=== PATIENT | female | born 1965 | race African-American/Black ===

== ENCOUNTER 2024-09-03 20:40 | Inpatient (IN) ==
--- NOTE | 2024-09-03 21:02 | Emergency Department Note ---
HPI - Abdominal Pain General Chief Complaint: Nausea/Vomiting/Diarrhea Stated Complaint: NAUSEA,VOMITING,CHEST PAIN GOING DOWN TO LEFT ARM Time Seen by Provider: 09/03/24 20:48 Source: patient Mode of arrival: walk-in Limitations: no limitations History of Present Illness HPI narrative: 59-year-old female presents to ER with complaint of left lower quadrant abdominal pain times several days, and chest pain that radiates down her left arm x 2 weeks ago and reoccurred today but is gone now. MD elicited complaint: abdominal pain and other (Chest pain) Pertinent past history: constipation and past UTI Onset (ago): day(s) (3) Pain Consistency: intermittent Location: chest and LLQ Severity: moderate Quality: cramping, aching and sharp Radiation: LUQ Migration to: no migration Exacerbating factors: eating and movement Relieving factors: nothing Context: history of similar episodes Associated symptoms: nausea, vomiting, constipation and other (Chest pain) Related Data Patient : No Patient lactating: No Allergies Allergy/AdvReac Type Severity Reaction Status Date / Time No Known Drug Allergies Allergy Verified 09/03/24 21:03 Review of Systems Status of ROS 10 or more systems reviewed and unremark able except as noted in history and below Constitutional Denies: fever, chills, change in weight, fatigue, malaise, night sweats, change in sleep pattern or other Eyes Denies: change in vision, blurry vision, blind spots, light sensitivity, eye discomfort, eye discharge, dry eyes, increased production of tears, floaters, seeing flashes or decreased night vision Ears, nose, mouth, and throat Denies: throat pain, neck pain, throat swelling, difficulty swallowing, hoarseness, mouth pain, swelling of lips/tongue, dry mouth, bad breath, ear pain, ear discharge, change in hearing, tinnitus, vertigo, nasal discharge, nasal congestion, nose bleeds or post nasal drip Cardiovascular Reports: chest pain; Denies: palpitations, edema, swelling of feet/ankles, lightheadedness, shortness of breath with exertion, shortness of breath when lying down, leg pain with exertion or bluish discoloration of hands/feet Respiratory Denies: shortness of breath, cough, wheezing, stridor, pain on inspiration, change in phlegm color, coughing up blood or chest congestion Gastrointestinal Reports: abdominal pain, nausea, vomiting and constipation; Denies: coffee grounds in vomit, heartburn, diarrhea, bloating, belching, excessive passing of gas, difficulty swallowing, feeling full early, change in bowel habits, painful bowel movements, rectal pain, rectal swelling, rectal itching, change in stool character, blood in stool, mucus in stool, white/light colored stool or fatty stool Genitourinary Denies: painful urination, urinary frequency, urinary urgency, urinary incontinence, blood in urine, difficulty voiding, decreased urine ouput, pelvic pain, painful menstruation, vaginal bleeding, vaginal discharge, irregular period, change in menstrual flow, absence of menstruation, genital lesion, genital itching, vaginal dryness, vaginal odor, pain during intercourse, difficulty conceiving or change in libido Musculoskeletal Reports: extremity pain; Denies: back pain, neck pain, extremity swelling, joint pain, limited range of motion, joint swelling, muscle cramps, muscle weakness or loss of height Integumentary/Breast Denies: rash, itching, redness, skin pain, skin tenderness, skin swelling, sores, new lesion, changing lesion, non-healing l esion, changes in skin color, jaundice, stretch alfonso, acne, nail changes, change in hair, breast pain, breast swelling, nipple discharge, breast mass, breast skin changes or change in breast shape Neurological Denies: headache, numbness in extremities, weakness in extremities, lack of coordination, dizziness, vertigo, confusion, behavioral changes, slurred speech, difficulty communicating thoughts, seizure-like activity or involuntary movements Psychiatric Reports: anxiety; Denies: mood swings, panic attacks, change in sleep pattern, hopelessness, loss of interest, irritability, paranoia, memory loss, difficulty concentrating, visual hallucinations, auditory hallucinations, tactile hallucinations, suicidal ideation or homicidal ideation Endocrine Denies: excessive urination, excessive thirst, fatigue, cold intolerance, excessive sweating, flushing, heat intolerance, deepening of the voice, change in body appearance or change in libido Hematologic/Lymphatic Denies: easy bruising, easy bleeding or enlarged lymph nodes Allergic/Immunologic Denies: hives, throat swelling, tongue swelling, facial swelling, wheezing, itchy eyes, seasonal allergies or food intolerance [facility] Medical History (Updated 09/03/24 @ 21:06 by Kassidy Crain RN) Diabetes Hypertension Surgical History (Updated 09/03/24 @ 21:06 by Kassidy Crain RN) History of partial hysterectomy Social History Smoking status: never smoker Feel stressed/tense/nervous/anxious/difficulty sleeping: to some extent Life stressors: other (none) Life stressor details: Current medical condition Due to disability, difficulty making decisions: No Exam Constitutional: normal general appearance, distress noted (moderate), average body habitus, no limitations and alert Vital Signs - 24 hr 09/03/24 21:00 09/03/24 21:01 09/03/24 21:30 Temperature 98.6 F Pulse Rate 120 H 135 H 125 H Respiratory Rate 20 20 20 Blood Pressure 123/56 136/69 108/54 Pulse Oximetry 100 97 96 Oxygen Delivery Va thod Room Air Room Air Room Air 09/03/24 22:00 09/03/24 22:15 09/03/24 22:45 Temperature Pulse Rate 120 H 121 H 120 H Respiratory Rate 20 20 18 Blood Pressure 100/56 90/53 94/61 Pulse Oximetry 95 95 95 Oxygen Delivery Va thod Room Air Room Air Room Air 09/03/24 23:00 09/03/24 23:15 09/03/24 23:45 Temperature Pulse Rate 116 H 113 H 115 H Respiratory Rate 18 14 19 Blood Pressure 96/56 93/59 99/58 Pulse Oximetry 95 96 96 Oxygen Delivery Va thod Room Air Room Air Room Air 09/04/24 00:20 Temperature Pulse Rate 117 H Respiratory Rate 16 Blood Pressure 95/56 Pulse Oximetry 96 Oxygen Delivery Va thod Room Air HENMT: normocephalic, head/scalp atraumatic, hearing grossly normal bilaterally, external ears normal, EACs normal, nasal mucous membranes normal, external nose normal, oral mucous membranes normal, oropharynx normal, dentition normal and gingiva normal Eyes: PERRL, EOMs intact bilaterally, conjunctivae normal, no scleral icterus, no papilledema, normal visual thibodeaux by confrontation, alignment normal, periorbital findings normal and no nystagmus Neck/C-Spine: visual inspection normal, trachea midline, cervical spine nontender, cervical full ROM noted, supple, no meningeal signs and thyroid normal Lymph: no lymphadenopathy noted and no lymphedema noted Chest: inspection of chest normal, inspection of breast(s) abnormal (deferred) and palpation of breast(s) abnormal (deferred) Respiratory: breath sounds equal bilaterally, normal respiratory effort, clear to auscultation bilaterally, no wheezes, no rales, no retractions and no use of accessory muscles Cardiovascular: heart rate abnormal (113) (tachycardic), regular rhythm noted, no gallop, no rub, no murmur, no JVD, no clicks, peripheral pulses 2+ throughout and no additional abnormal heart sounds Gastrointestinal: abdomen normal to inspection, abdomen soft to palpation, tender to palpation (moderate) and (LLQ), nondistended, normoactive bowel sounds, no hepatosplenomegaly, no masses, no pulsatile mass, no ascites and rectal exam abnormal (deferred) Genitourinary: no CVA tenderness, bladder normal to palpation, vaginal abnorma lity noted (deferred) and cervical abnormality noted (deferred) Back/Pelvis: spine normal to inspection, no thoracic spine tenderness, no lumbar spine tenderness, thoracic spine ROM normal, lumbar spine ROM normal and no paraspinal muscle tenderness noted Extremities: normal to inspection, normal to palpation, no tenderness, full ROM, no joint enlargement and no deformity Patient reports pain in her lower extremities Neurology: in store banker II-XII intact, no movement abnormality noted, no focal motor deficit noted, no sensory deficits noted, deep tendon reflexes 2+ bilaterally, gait normal, speech normal, coordination normal, no pronator drift noted, no fasciculations noted and GCS normal Psychiatry: Mental Status Exam documented within this Exam's Psych section mental status grossly normal, oriented x3, thought process normal, cooperative, affect normal, psychomotor activity normal and memory normal Feel stressed/tense/nervous/anxious/difficulty sleeping: to some extent Life stressors: other (none) Life stressor details: Current medical condition Due to disability, difficulty making decisions: No Skin: skin color normal, no rash, no lesions, no ecchymosis noted, no wounds, no lacerations, skin turgor normal, no jaundice, no petechiae, no mottling, nails normal and no alopecia Course Course Hospital Course: 59-year-old female patient presented to ER with complaint of left lower quadrant abdominal pain and chest pain has been evaluated by physical exam, CBC, CMP, EKG, CT of the abdomen pelvis without contrast, plain film chest x-ray, Troponin, and swabs for influenza with results as noted in charting. Patient's labs reveal patient to be hyperglycemic, hypokalemic, hypoalbuminemic, adjusted sodium is within normal limits, patient is negative for influenza, and CT reveals patient to have a 4 mm nonobstructing renal calculi. Patient reports that she continues to be weak and dizzy and that her abdominal pain continues despite pain medication. Patient's glucose level is responding today; however, it is slow in coming down. Patient's labs also reveal her to be mildly dehydrated which will be replaced with normal saline. Patient will be admitted to observation on the [facility] floor for ongoing evaluation of cardiac enzymes and cardiac rule out, hyperglycemia, dehydration, pain control, and generalized weakness. Vital Signs Vital signs: Vital Signs Pulse Rate 120 H 09/03/24 21:00 Respiratory Rate 20 09/03/24 21:00 Blood Pressure 123/56 09/03/24 21:00 Pulse Oximetry 100 09/03/24 21:00 Oxygen Delivery Method Room Air 09/03/24 21:00 Temperature 98.6 F 09/03/24 21:01 Pulse Rate 117 H 09/04/24 00:20 Respiratory Rate 16 09/04/24 00:20 Blood Pressure 95/56 09/04/24 00:20 Pulse Oximetry 96 09/04/24 00:20 Oxygen Delivery Method Room Air 09/04/24 00:20 MDM - Abdominal Pain MDM Narrative Medical decision making narrative: Medical Decision Making this patient above physical exam, CBC, CMP, troponin, urinalysis, EKG, plain film chest x-ray, CT of the abdomen/pelvis without contrast, and swab for influenza. Differential Diagnosis Differential diagnosis: Likely abdominal pain, calculus of kidney, constipation, diverticulitis, gastroenteritis and small bowel obstruction Lab Data Attestation: I reviewed the patient's lab results. Labs: Lab Results 09/03/24 Range/Units 21:05 WBC 7.1 (4.3-9.3) K/uL RBC 5.1 (4.00-5.50) M/uL Hgb 12.8 (12.5-15.8) gm/dL Hct 38.3 (35.9-46.7) % MCV 75.2 L (81.0-93.7) fl MCH 25.2 L (27.6-32.2) pg MCHC 33.5 (33.1-35.3) g/dl RDW 16.8 H (11.4-14.2) % Plt Count 174 (152-353) K/uL MPV 10.3 (6.9-10.8) fl Gran % 90.4 H (47.8-71.3) % Lymph % (Auto) 7.4 L (20.0-43.0) % [place] % (Auto) 1.6 L (3.6-9.8) % Eos % (Auto) 0.1 L (0.4-2.8) % Baso % (Auto) 0.5 (0.1-0.85) Lymph # (Auto) 0.5 L (1.1-3.1) [place] # (Auto) 0.1 L (1.1-3.1) Eos # (Auto) 0.0 (0.0-0.2) Baso # (Auto) 0.0 (0.0-0.1) Absolute Gran (auto) 6.4 H (2.3-6.0) Sodium 129 L (136-145) mmol/L Potassium 3.5 L (3.6-5.2) mmol/L Chloride 94.0 L (98-107) mmol/L Carbon Dioxide 25 (21-32) mmol/L Anion Gap 10.0 (4-14) mEq/L BUN 15 (7-18) mg/dL Creatinine 1.7 H (0.6-1.3) mg/dL Estimated GFR 34.6 (>59.9) Glucose 582 H* (70-110) mg/dL Calcium 9.0 (8.5-10.1) mg/dL Total Bilirubin 1.92 H (0.0-1.0) mg/dL AST 62 H (15-37) U/L ALT 45 (30-65) U/L Alkaline Phosphatase 310 H (50-136) U/L Troponin I High Sens 7.30 (4.0-60.4) ng/L Total Protein 7.5 (6.4-8.2) g/dL Albumin 2.8 L (3.4-5.0) g/dL Influenza Type A Ag Negative (Negative) Influenza Type B Ag Negative (Negative) Imaging Data Imaging ordered: Chest x-ray and CT scan - abdomen Attestation: I have reviewed the pertinent imaging results. My impression: No acute cardiopulmonary process Radiologist's impression: PROCEDURE: CT Abdomen and Pelvis without IV Contrast. HISTORY: LLQ abd painLLQ abd pain; LLQ abd pain. TECHNIQUE: Axial images were performed through the abdomen and pelvis without the administration of IV contrast with multiplanar reformations . Oral contrast was notadministered . Dose reduction techniques including Automated Exposure Control (AEC) and adjustment of mA and kV were utilized .. COMPARISON: None. TECHNICAL QUALITY: Satisfactory. FINDINGS: Clear lung bases. Mild diffuse hepatic steatosis. Spleen, adrenals, pancreas show no abnormality. 4 mm mid left ureter stone with mild proximal hydroureteronephrosis. Normal biliary tract. No ascites or pneumoperitoneum. Normal aorta. No lymphadenopathy. No bowel obstruction or inflammation. Normal appendix. No pelvic masses or free fluid with unremarkable reproductive organs and urinary bladder. No acute bony abnormality. IMPRESSION: Mid left ureterolithiasis with mild hydroureteronephrosis. Mild diffuse hepatic steatosis. THIS IS AN ELECTRONICALLY VERIFIED FINAL REPORT 09/04/2024 12:14 AM - Electronically signed by J Carlos Esparza MD ECG Data Attestation: I have reviewed the pertinent ECG results. Interpretation: Tachycardia rate 130 Left anterior vascular block Left ventricular hypertrophy Nonspecific T abnormalities RR 464 NJ 136 P axis 71 QRS -54 T 97 Discharge Plan Discharge Patient Disposition: Admitted As Observation Condition: Stable Chief Complaint: Nausea/Vomiting/Diarrhea Clinical Impression: Kidney stone, Hypokalemia, Uncontrolled diabetes mellitus with hyperglycemia, Hypoalbuminemia, Chest pain Print Language: Croatian Referrals: Jayjay Jhaveri DPM [Referring] - Time of Disposition: 00:30
[2024-09-03] MEDS ORDERED: ONDANSETRON HCL/PF 4 MG/2 ML VIAL ONE (21:08)
[2024-09-03] MEDS: ONDANSETRON HCL/PF 4 MG/2 ML VIAL IVP ONE (21:09)
[2024-09-03 21:16] LABS: Basophils%(Percent) Auto 0.5 (0.1-0.85); Eosinophils%(Percent) Auto 0.1 % (0.4-2.8); Granulocytes % - Auto 90.4 % (47.8-71.3); Granulocytes#(Absolute)- Auto 6.4 (2.3-6.0); Hematocrit 38.3 % (35.9-46.7); Mean Corpuscular Volume 75.2 fl (81.0-93.7); Monocytes #(Absolute)- Auto 0.1 (1.1-3.1); Monocytes %(Percent)- Auto 1.6 % (3.6-9.8); Platelet Count 174 K/uL (152-353); White Blood Count 7.1 K/uL (4.3-9.3)
[2024-09-03 21:38] LABS: Potassium 3.5 mmol/L (3.6-5.2)
[2024-09-03] MEDS ORDERED: 0.9 % SODIUM CHLORIDE 1000 ML 1,000 ML IV ONE (22:24)
[2024-09-03] MEDS: 0.9 % SODIUM CHLORIDE 1000 ML 1,000 ML IV STA (22:27)
[2024-09-04] MEDS ORDERED: KETOROLAC 30 MG/ML INJ VIAL ONE (00:21)
[2024-09-04] MEDS ORDERED: ONDANSETRON HCL/PF 4 MG/2 ML VIAL ONE (00:22)
[2024-09-04] MEDS: ONDANSETRON HCL/PF 4 MG/2 ML VIAL IVP ONE (00:28)
[2024-09-04] MEDS: KETOROLAC 30 MG/ML INJ VIAL IVP ONE (00:29)
[2024-09-04] MEDS ORDERED: TAMSULOSIN HCL 0.4 MG CAPSULE PO ONE (00:30)
[2024-09-04] MEDS: TAMSULOSIN HCL 0.4 MG CAPSULE PO ONE (00:31)
[2024-09-04] MEDS: POTASSIUM CL 40 MEQ/30 ML 40 MEQ/30 ML LIQUID PO STA (00:50)
[2024-09-04] MEDS ORDERED: MAGNESIUM, ALUMINUM HYDROXIDE 30 ML ORAL.SUSP PO PRN (01:05)
[2024-09-04] MEDS ORDERED: bisacodyL 10 MG SUPP.RECT PR PRN (01:05)
[2024-09-04] MEDS: 0.9 % SODIUM CHLORIDE 1000 ML 1,000 ML IV SCH (03:23)
[2024-09-04] MEDS: KETOROLAC 30 MG/ML INJ VIAL IVP PRN (03:23)
[2024-09-04] MEDS: ONDANSETRON HCL/PF 4 MG/2 ML VIAL INJ PRN (03:24)
[2024-09-04 09:30] LABS: Basophils #(Absolute) Auto 0.1 (0.0-0.1); Basophils%(Percent) Auto 0.4 (0.1-0.85); Eosinophils%(Percent) Auto 0.1 % (0.4-2.8); Monocytes #(Absolute)- Auto 1.6 (1.1-3.1)
[2024-09-04 09:31] LABS: Granulocytes % - Auto 82.7 % (47.8-71.3); Granulocytes#(Absolute)- Auto 14.7 (2.3-6.0); Hematocrit 32.6 % (35.9-46.7); Mean Corpuscular Volume 75.3 fl (81.0-93.7); Monocytes %(Percent)- Auto 9.1 % (3.6-9.8); Platelet Count 158 K/uL (152-353); White Blood Count 17.8 K/uL (4.3-9.3)
[2024-09-04 09:43] LABS: Urine Appearance CLOUDY (CLEAR); Urine Blood 4+ (NEG - TRACE); Urine Color YELLOW (STRAW/YELL.); Urine Urobilinogen Normal (NORMAL)
[2024-09-04] MEDS: MORPHINE SULFATE 4 MG/ML CARTRIDGE IV PRN (09:49)
[2024-09-04 09:50] LABS: Urine Amorphous Sediment Negative (Negative); Urine Yeast Negative (Negative)
[2024-09-04] MEDS: SODIUM CHLORIDE 0.9% IV ONE (10:09)
[2024-09-04] MEDS: MAGNESIUM SULFATE 1 GM/2 ML 2 GM in 0.9 % SODIUM CHLORIDE 100ML 100 ML IV ONE (10:09)
[2024-09-04] MEDS: POTASSIUM PHOS M BASIC D BASIC IV ONE (10:09)
[2024-09-04 11:39] LABS: PCO2 ABG 42 mmHg (35-45); PO2 ABG 66 mmHg (60-100)
[2024-09-04 11:40] LABS: Oxygen Saturation ABG 93 % (92-100)
[2024-09-04] MEDS: 0.9 % SODIUM CHLORIDE 500 ML IV ONE (11:59)
[2024-09-04] MEDS: CEFTRIAXONE SODIUM 1 GM in 0.9 % SODIUM CHLORIDE MB+ 50 ML IV SCH (11:59)
[2024-09-04] MEDS: INSULIN GLARGINE-YFGN 100 UNIT/ML INSULN.PEN SUBQ SCH ×2 (12:07→20:54)
[2024-09-04] MEDS ORDERED: FUROSEMIDE 20 MG TABLET PO PRN (13:06)
[2024-09-04] MEDS: ACETAMINOPHEN 500 MG TABLET PO PRN (16:25)
--- NOTE | 2024-09-04 16:45 | History & Physical Report ---
H&P: HPI History of Present Illness Chief complaint: CHEST PAIN,HYPERGLYCEMIA,KIDNEY STONE,PAIN CONTROL Narrative: 59-year-old female presents to ER with complaint of left lower quadrant abdominal pain times several days, and chest pain that radiates down her left arm x 2 weeks ago and reoccurred today but is gone now. Admitted to med/surg for further observation and treatment. Day one of hospital stay, patient states she still feels dizzy and weak. She reports she has had chest pain for 2 days, her fiber optic technician is Dr. Peterson. Blood sugar level was elevated this morning at 430. Provider will increase fluids from 100 to 125/hr and add medication for bowel movement. Request for Physical Therapy was put in for evaluation for inner ear. Review of Systems Status of ROS 10 or more systems reviewed and unremark able except as noted in history and below Constitutional Denies: fever, chills, change in weight, fatigue, malaise, night sweats, change in sleep pattern or other Eyes Denies: change in vision, blurry vision, blind spots, light sensitivity, eye discomfort, eye discharge, dry eyes, increased production of tears, floaters, seeing flashes or decreased night vision Ears, nose, mouth, and throat Denies: throat pain, neck pain, throat swelling, difficulty swallowing, hoarseness, mouth pain, swelling of lips/tongue, dry mouth, bad breath, ear pain, ear discharge, change in hearing, tinnitus, vertigo, nasal discharge, nasal congestion, nose bleeds or post nasal drip Cardiovascular Reports: chest pain; Denies: palpitations, edema, swelling of feet/ankles, lightheadedness, shortness of breath with exertion, shortness of breath when lying down, leg pain with exertion or bluish discoloration of hands/feet Respiratory Denies: shortness of breath, cough, wheezing, stridor, pain on inspiration, change in phlegm color, coughing up blood or chest congestion Gastrointestinal Reports: abdominal pain, nausea, vomiting and constipation; Denies: coffee grounds in vomit, heartburn, diarrhea, bloating, belching, excessive passing of gas, difficulty swallowing, feeling full early, change in bowel habits, painful bowel movements, rectal pain, rectal swelling, rectal itching, change in stool character, blood in stool, mucus in stool, white/light colored stool or fatty stool Genitourinary Denies: painful urination, urinary frequency, urinary urgency, urinary incontinence, blood in urine, difficulty voiding, decreased urine ouput, pelvic pain, painful menstruation, vaginal bleeding, vaginal discharge, irregular period, change in menstrual flow, absence of menstruation, genital lesion, genital itching, vaginal dryness, vaginal odor, pain during intercourse, difficulty conceiving or change in libido Musculoskeletal Reports: extremity pain; Denies: back pain, neck pain, extremity swelling, joint pain, limited range of motion, joint swelling, muscle cramps, muscle weakness or loss of height Integumentary/Breast Denies: rash, itching, redness, skin pain, skin tenderness, skin swelling, sores, new lesion, changing lesion, non-healing lesion, changes in skin color, jaundice, stretch alfonso, acne, nail changes, change in hair, breast pain, breast swelling, nipple discharge, breast mass, breast skin changes or change in breast shape Neurological Denies: headache, numbness in extremities, weakness in extremities, lack of coordination, dizziness, vertigo, confusion, behavioral changes, slurred speech, difficulty communicating thoughts, seizure-like activity or involuntary movements Psychiatric Reports: anxiety; Denies: mood swings, panic attacks, change in sleep pattern, hopelessness, loss of interest, irritability, paranoia, memory loss, difficulty concentrating, visual hallucinations, auditory hallucinations, tactile hallucinations, suicidal ideation or homicidal ideation Endocrine Denies: excessive urination, excessive thirst, fatigue, cold intolerance, excessive sweating, flushing, heat intolerance, deepening of the voice, change in body appearance or change in libido Hematologic/Lymphatic Denies: easy bruising, easy bleeding or enlarged lymph nodes Allergic/Immunologic Denies: hives, throat swelling, tongue swelling, facial swelling, wheezing, itchy eyes, seasonal allergies or food intolerance [facility] Medical History (Updated 09/04/24 @ 16:45 by JONATHAN Ford) Diabetes Hypertension Surgical History (Updated 09/03/24 @ 21:06 by Kassidy Crain RN) History of partial hysterectomy Social History Smoking status: never smoker Problems where you live: no known problems Highest level of school completed/degree received: high school Feel stressed/tense/nervous/anxious/difficulty sleeping: to some extent Life stressors: other (none) Life stressor details: Current medical condition Due to disability, difficulty making decisions: No Do you think of yourself as: straight/heterosexual Gender Identity: female Meds Home Medications and Allergies Home Medications Medication Instructions Recorded Confirmed Type duloxetine 30 mg capsule,delayed 30 mg PO DAILY 09/04/24 09/04/24 History release fluoxetine 10 mg capsule 10 mg PO DAILY 09/04/24 09/04/24 History furosemide 20 mg tablet 20 mg PO DAILY PRN edema 09/04/24 09/04/24 History glimepiride 4 mg tablet 4 mg PO BID 09/04/24 09/04/24 History hydrocodone 7.5 mg-acetaminophen 1 tab PO Q8H PRN pain 09/04/24 09/04/24 History 325 mg tablet insulin degludec 100 unit/mL (3 80 unit subcut DAILY 09/04/24 09/04/24 History mL) subcutaneous pen (Tresiba FlexTouch U-100 insulin) lisinopril 5 mg tablet 5 mg PO DAILY 09/04/24 09/04/24 History pantoprazole 40 mg tablet,delayed 40 mg PO DAILY 09/04/24 09/04/24 History release rosuvastatin 20 mg tablet 20 mg PO DAILY 09/04/24 09/04/24 History Allergies Allergy/AdvReac Type Severity Reaction Status Date / Time No Known Drug Allergies Allergy Verified 09/04/24 04:45 Exam Exam: Patient is in low enrique's position with family at bedside upon entering room for exam. Constitutional: normal general appearance, no apparent distress, abnormal body habitus (obese), no limitations and alert Vital Signs - 24 hr 09/03/24 21:00 09/03/24 21:01 09/03/24 21:30 Temperature 98.6 F Pulse Rate 120 H 135 H 125 H Pulse Rate [Radial ] Respiratory Rate 20 20 20 Blood Pressure 123/56 136/69 108/54 Blood Pressure [Le ft Arm] Pulse Oximetry 100 97 96 Oxygen Delivery Me thod Room Air Room Air Room Air 09/03/24 22:00 09/03/24 22:15 09/03/24 22:45 Temperature Pulse Rate 120 H 121 H 120 H Pulse Rate [Radial ] Respiratory Rate 20 20 18 Blood Pressure 100/56 90/53 94/61 Blood Pressure [Le ft Arm] Pulse Oximetry 95 95 95 Oxygen Delivery Me thod Room Air Room Air Room Air 09/03/24 23:00 09/03/24 23:15 09/03/24 23:45 Temperature Pulse Rate 116 H 113 H 115 H Pulse Rate [Radial ] Respiratory Rate 18 14 19 Blood Pressure 96/56 93/59 99/58 Blood Pressure [Le ft Arm] Pulse Oximetry 95 96 96 Oxygen Delivery Tn thod Room Air Room Air Room Air 09/04/24 00:20 09/04/24 00:30 09/04/24 01:00 Temperature Pulse Rate 117 H 114 H 110 H Pulse Rate [Radial ] Respiratory Rate 16 15 18 Blood Pressure 95/56 96/63 93/51 Blood Pressure [Le ft Arm] Pulse Oximetry 96 96 [facility] 09/04/24 02:29 09/04/24 02:35 09/04/24 02:35 Temperature 98.6 F 98.2 F Pulse Rate 110 H Pulse Rate [Radial ] 112 H Respiratory Rate 18 20 Blood Pressure 93/51 Blood Pressure [Le ft Arm] 85/49 Pulse Oximetry 96 97 Oxygen Delivery [facility] Room Air Room Air 09/04/24 04:00 09/04/24 08:00 09/04/24 12:00 Temperature 98.2 F 97.8 F 98.3 F Pulse Rate Pulse Rate [Radial ] 112 H 92 H 94 H Respiratory Rate 20 19 19 Blood Pressure Blood Pressure [Le ft Arm] 85/49 92/48 80/46 Pulse Oximetry 97 96 95 [facility] Air Room Air 09/04/24 16:00 Temperature 102.7 F H Pulse Rate Pulse Rate [Radial ] 152 H Respiratory Rate 20 Blood Pressure Blood Pressure [Le ft Arm] 156/97 Pulse Oximetry 92 L [facility] HENMT: normocephalic, head/scalp atraumatic, hearing grossly normal bilaterally, external ears normal, EACs normal, nasal mucous membranes normal, external nose normal, oral mucous membranes normal, oropharynx normal, dentition normal and gingiva normal Eyes: PERRL, EOMs intact bilaterally, conjunctivae normal, no scleral icterus, no papilledema, normal visual thibodeaux by confrontation, alignment normal, periorbital findings normal and no nystagmus Neck/C-Spine: visual inspection normal, trachea midline, cervical spine nontender, cervical full ROM noted, supple, no meningeal signs and thyroid normal Lymph: no lymphadenopathy noted and no lymphedema noted Chest: inspection of chest normal, inspection of breast(s) abnormal (deferred) and palpation of breast(s) abnormal (deferred) Respiratory: breath sounds equal bilaterally, normal respiratory effort, clear to auscultation bilaterally, no wheezes, no rales, no retractions and no use of accessory muscles Cardiovascular: heart rate abnormal (tachycardic), regular rhythm noted, no gallop, no rub, no murmur, no JVD, no clicks, peripheral pulses 2+ throughout and no additional abnormal heart sounds Gastrointestinal: abdomen normal to inspection, abdomen soft to palpation, tender to palpation (moderate) and (LLQ), nondistended, normoactive bowel sounds, no hepatosplenomegaly, no masses, no pulsatile mass, no ascites and rectal exam abnormal (deferred) Genitourinary: no CVA tenderness, bladder normal to palpation, vaginal abnormality noted (deferred) and cervical abnormality noted (deferred) Back/Pelvis: spine normal to inspection, no thoracic spine tenderness, no lumbar spine tenderness, thoracic spine ROM normal, lumbar spine ROM normal and no paraspinal muscle tenderness noted Extremities: normal to inspection, normal to palpation, no tenderness, full ROM, no joint enlargement and no deformity Neurology: pipeline inspector II-XII intact, no movement abnormality noted, no focal motor deficit noted, no sensory deficits noted, deep tendon reflexes 2+ bilaterally, gait normal, speech normal, coordination normal, no pronator drift noted, no fasciculations noted and GCS normal Psychiatry: Mental Status Exam documented within this Exam's Psych section mental status grossly normal, oriented x3, thought process normal, cooperative, affect normal, psychomotor activity normal and memory normal Skin: skin color normal, no rash, no lesions, no ecchymosis noted, no wounds, no lacerations, skin turgor normal, no jaundice, no petechiae, no mottling, nails normal and no alopecia Assessment and Plan Assessment and Plan (1) Hypertension: Qualifiers: Hypertension type: primary hypertension Qualified Code(s): I10 - Essential (primary) hypertension Code(s): I10 - Essential (primary) hypertension (2) Diabetes: Qualifiers: Diabetes mellitus type: type 2 Diabetes mellitus intermediate teacher insulin use: with intermediate teacher use Diabetes mellitus complication status: with hyperglycemia Qualified Code(s): E11.65 - Type 2 diabetes mellitus with hyperglycemia; Z79.4 - jail (current) use of insulin Code(s): E11.9 - Type 2 diabetes mellitus without complications (3) Kidney stone: Code(s): N20.0 - Calculus of kidney (4) Chest pain: Qualifiers: Chest pain type: unspecified Qualified Code(s): R07.9 - Chest pain, unspecified Code(s): R07.9 - Chest pain, unspecified (5) UTI (urinary tract infection): Qualifiers: Urinary tract infection type: site unspecified Hematuria presence: with hematuria Qualified Code(s): N39.0 - Urinary tract infection, site not specif ied; R31.9 - Hematuria, unspecified Code(s): N39.0 - Urinary tract infection, site not specified (6) Constipation: Qualifiers: Constipation type: slow transit constipation Qualified Code(s): K59.01 - Slow transit constipation Code(s): K59.00 - Constipation, unspecified Plan Continue to monitor labs and symptoms for improvement. Results Labs Labs: CBC WBC 17.8 K/uL (4.3-9.3) H D 09/04/24 05:00 RBC 4.3 M/uL (4.00-5.50) 09/04/24 05:00 Hgb 10.7 gm/dL (12.5-15.8) L 09/04/24 05:00 Hct 32.6 % (35.9-46.7) L 09/04/24 05:00 MCV 75.3 fl (81.0-93.7) L 09/04/24 05:00 MCH 24.8 pg (27.6-32.2) L 09/04/24 05:00 MCHC 32.9 g/dl (33.1-35.3) L 09/04/24 05:00 RDW 16.2 % (11.4-14.2) H 09/04/24 05:00 Plt Count 158 K/uL (152-353) 09/04/24 05:00 MPV 12.2 fl (6.9-10.8) H 09/04/24 05:00 Gran % 82.7 % (47.8-71.3) H 09/04/24 05:00 Lymph % (Auto) 7.7 % (20.0-43.0) L 09/04/24 05:00 [place] % (Auto) 9.1 % (3.6-9.8) 09/04/24 05:00 Eos % (Auto) 0.1 % (0.4-2.8) L 09/04/24 05:00 Baso % (Auto) 0.4 (0.1-0.85) 09/04/24 05:00 Lymph # (Auto) 1.4 (1.1-3.1) 09/04/24 05:00 [place] # (Auto) 1.6 (1.1-3.1) 09/04/24 05:00 Eos # (Auto) 0.0 (0.0-0.2) 09/04/24 05:00 Baso # (Auto) 0.1 (0.0-0.1) 09/04/24 05:00 Absolute Gran (auto) 14.7 (2.3-6.0) H 09/04/24 05:00 BMP Sodium 130 mmol/L (136-145) L 09/04/24 05:00 Potassium 4.0 mmol/L (3.6-5.2) 09/04/24 05:00 Chloride 97.0 mmol/L (98-107) L 09/04/24 05:00 Carbon Dioxide 27 mmol/L (21-32) 09/04/24 05:00 Anion Gap 6.0 mEq/L (4-14) 09/04/24 05:00 BUN 20 mg/dL (7-18) H 09/04/24 05:00 Creatinine 2.5 mg/dL (0.6-1.3) H 09/04/24 05:00 Estimated GFR 21.8 (>59.9) 09/04/24 05:00 Glucose 418 mg/dL (70-110) H* 09/04/24 05:00 Hemoglobin A1c 10.2 % (4.8-6.0) H 09/04/24 05:00 Calcium 8.4 mg/dL (8.5-10.1) L 09/04/24 05:00 Phosphorus 1.9 mg/dL (2.5-4.9) L 09/04/24 05:00 Magnesium 1.5 mg/dL (1.8-2.4) L 09/04/24 05:00 Total Bilirubin 1.00 mg/dL (0.0-1.0) 09/04/24 05:00 AST 30 U/L (15-37) 09/04/24 05:00 ALT 35 U/L (30-65) 09/04/24 05:00 Alkaline Phosphatase 159 U/L (50-136) H 09/04/24 05:00 Total Protein 6.4 g/dL (6.4-8.2) 09/04/24 05:00 Albumin 2.3 g/dL (3.4-5.0) L 09/04/24 05:00 Cardiac Enzymes Troponin I High Sens 22.30 ng/L (4.0-60.4) 09/04/24 05:00 Liver Function Total Bilirubin 1.00 mg/dL (0.0-1.0) 09/04/24 05:00 AST 30 U/L (15-37) 09/04/24 05:00 ALT 35 U/L (30-65) 09/04/24 05:00 Alkaline Phosphatase 159 U/L (50-136) H 09/04/24 05:00 Total Protein 6.4 g/dL (6.4-8.2) 09/04/24 05:00 Albumin 2.3 g/dL (3.4-5.0) L 09/04/24 05:00 Urine Urine Color Yellow (STRAW/YELL.) 09/04/24 09:30 Urine Appearance Cloudy (CLEAR) 09/04/24 09:30 Ur Specific [place] 1.020 (1.001-1.035) 09/04/24 09:30 Urine Protein 3+ (NEGATIVE) 09/04/24 09:30 Urine Glucose (UA) 4+ (NORMAL) 09/04/24 09:30 Urine Ketones Negative (NEGATIVE) 09/04/24 09:30 Urine Occult Blood 4+ (NEG - TRACE) 09/04/24 09:30 Urine Nitrite Negative (NEGATIVE) 09/04/24 09:30 Urine Bilirubin Negative (NEGATIVE) 09/04/24 09:30 Urine Urobilinogen Normal (NORMAL) 09/04/24 09:30 Ur Leukocyte Esterase Positive (NEGATIVE) 09/04/24 09:30 ABG ABG results: 09/04/24 11:20 ABG pH 7.40 ABG pCO2 42 ABG pO2 97 ABG HCO3 26.0 ABG Total CO2 27.3 ABG O2 Saturation 93 ABG Base Excess 1.0 Imaging Imaging ordered: Chest x-ray and CT scan - abdomen Radiologist's impression: Portable chest Date of Service: 09/03/24 HISTORY: Dyspnea COMPARISON: 03/29/2023 FINDINGS: Heart is mildly enlarged. No definite congestive heart failure is identified. No definite acute alveolar infiltrates, pleural effusions, or pneumothoraces identified. Bony thorax is unremarkable IMPRESSION: Mild cardiomegaly without congestive heart failure CT Abdomen and Pelvis without IV Contrast. Date of Service: 09/03/24 HISTORY: LLQ abd painLLQ abd pain; LLQ abd pain. TECHNIQUE: Axial images were performed through the abdomen and pelvis without the administration of IV contrast with multiplanar reformations . Oral contrast was notadministered . Dose reduction techniques including Automated Exposure Control (AEC) and adjustment of mA and kV were utilized .. COMPARISON: None. TECHNICAL QUALITY: Satisfactory. FINDINGS: Clear lung bases. Mild diffuse hepatic steatosis. Spleen, adrenals, pancreas show no abnormality. 4 mm mid left ureter stone with mild proximal hydroureteronephrosis. Normal biliary tract. No ascites or pneumoperitoneum. Normal aorta. No lymphadenopathy. No bowel obstruction or inflammation. Normal appendix. No pelvic masses or free fluid with unremarkable reproductive organs and urinary bladder. No acute bony abnormality. IMPRESSION: Mid left ureterolithiasis with mild hydroureteronephrosis. Mild diffuse hepatic steatosis. No acute infiltrates
[2024-09-04] MEDS: TAMSULOSIN HCL 0.4 MG CAPSULE PO SCH (17:21)
[2024-09-04] MEDS: 0.9 % SODIUM CHLORIDE 1000 ML 1,000 ML IV ONE ×2 (19:32→20:25)
[2024-09-04 20:21] LABS: Potassium 2.8 mmol/L (3.6-5.2)
[2024-09-04] MEDS: GLIMEPIRIDE 2 MG TABLET PO SCH (20:25)
[2024-09-04] MEDS: LEVOFLOXACIN/D5W 750 MG/150 ML 750 MG/150 ML PIGGYBACK IV SCH (20:25)
[2024-09-04 20:44] LABS: Basophils%(Percent) Auto 0.3 (0.1-0.85); Eosinophils%(Percent) Auto 0.6 % (0.4-2.8); Granulocytes#(Absolute)- Auto 4.9 (2.3-6.0); Hematocrit 30.6 % (35.9-46.7); Mean Corpuscular Volume 74.9 fl (81.0-93.7); Monocytes #(Absolute)- Auto 0.1 (1.1-3.1); Monocytes %(Percent)- Auto 1.8 % (3.6-9.8); Platelet Count 117 K/uL (152-353); White Blood Count 5.4 K/uL (4.3-9.3)
[2024-09-04] MEDS: LEVOFLOXACIN/D5W 500 MG/100 ML 500 MG/100 ML PIGGYBACK IV SCH (20:51)
[2024-09-04] MEDS ORDERED: POTASSIUM CHLORIDE IN WATER 10 MEQ/100 ML PIGGYBACK IV SCH (21:00)
[2024-09-04] MEDS: POTASSIUM CHLORIDE 20 MEQ TAB.ER.PRT PO ONE (21:14)
[2024-09-04] MEDS: ALBUMIN HUMAN 25% 100 ML IV SCH (21:14)
[2024-09-04] MEDS: MIDODRINE HCL 5 MG TABLET PO ONE (23:40)
[2024-09-05 02:17] LABS: Basophils #(Absolute) Auto 0.1 (0.0-0.1); Basophils%(Percent) Auto 0.4 (0.1-0.85); Eosinophils#(Absolute)Auto 0.1 (0.0-0.2); Eosinophils%(Percent) Auto 0.3 % (0.4-2.8); Granulocytes % - Auto 85.1 % (47.8-71.3); Granulocytes#(Absolute)- Auto 14.6 (2.3-6.0); Hematocrit 27.8 % (35.9-46.7); Mean Corpuscular Volume 74.5 fl (81.0-93.7); Monocytes #(Absolute)- Auto 1.6 (1.1-3.1); Monocytes %(Percent)- Auto 9.4 % (3.6-9.8); Platelet Count 89 K/uL (152-353); White Blood Count 17.1 K/uL (4.3-9.3)
[2024-09-05 02:40] LABS: Anisocytosis 1+ (Negative); RBC Morphology Abnormal (Normal); Total Cells Counted 100
[2024-09-05 03:25] LABS: Anisocytosis 1+ (Negative); Hypochromia 1+ (22-24) (None Seen); RBC Morphology Abnormal (Normal); Total Cells Counted 100
[2024-09-05 06:09] LABS: Basophils #(Absolute) Auto 0.1 (0.0-0.1); Basophils%(Percent) Auto 0.5 (0.1-0.85); Eosinophils%(Percent) Auto 0.3 % (0.4-2.8); Granulocytes % - Auto 87.7 % (47.8-71.3); Granulocytes#(Absolute)- Auto 13.3 (2.3-6.0); Hematocrit 27.7 % (35.9-46.7); Mean Corpuscular Volume 75.5 fl (81.0-93.7); Monocytes %(Percent)- Auto 6.3 % (3.6-9.8); Platelet Count 91 K/uL (152-353); White Blood Count 15.2 K/uL (4.3-9.3)
[2024-09-05 06:30] LABS: Potassium 5.5 mmol/L (3.6-5.2)
[2024-09-05 06:59] LABS: RBC Morphology Normal (Normal); Total Cells Counted 100
[2024-09-05] MEDS: FLUOXETINE HCL 10 MG CAPSULE PO SCH (09:32)
[2024-09-05] MEDS: PANTOPRAZOLE SODIUM 40 MG TABLET.DR PO SCH (09:32)
[2024-09-05] MEDS: DULOXETINE HCL 30 MG CAPSULE.DR PO SCH (09:32)
--- NOTE | 2024-09-05 11:09 | Progress Note ---
Progress Note: Subjective Subjective Interval history: BP dropped yesterday around 6 pm with the spiking of a fever up to 102.7 and Tylenol and ibuprofen resolved the fever and fluids and reverse trendlinberg and adding levaquin to the antibiotics has resolved the issues with the BP and tachycardia and patient was able to eat breakfast and urinated finally afterwards. Albumin dropped out with hydration and replaced without incident and patient trop and liver and renal markers continue to climb despite medic ations and fluids. Exam Constitutional: abnormal general appearance (disheveled), distress noted (moderate), abnormal body habitus (obese), limitations noted (physical limitations) and alert Vital Signs - 24 hr 09/04/24 12:00 09/04/24 16:00 09/04/24 20:00 Temperature 98.3 F 102.7 F H 98.6 F Pulse Rate [Radial ] 94 H 152 H 71 Respiratory Rate 19 20 18 Blood Pressure [Le ft Arm] 80/46 156/97 64/36 Pulse Oximetry 95 92 L 100 Oxygen Delivery Mn thod Room Air Room Air Room Air 09/04/24 23:38 09/05/24 03:35 09/05/24 08:00 Temperature 97.9 F 97.7 F 97.9 F Pulse Rate [Radial ] 110 H 104 H 100 H Respiratory Rate 17 19 20 Blood Pressure [Le ft Arm] 75/44 79/49 135/81 Pulse Oximetry 96 95 92 L Oxygen Delivery Mn thod Room Air Room Air Nasal Cannula HENMT: normocephalic, head/scalp atraumatic, hearing grossly normal bilat erally, external ears normal, EACs normal, TMs abnormal, nasal mucous membranes abnormal (pale), external nose normal, oral mucous membranes abnormal (dry), oropharynx normal, dentition normal and gingiva normal Eyes: PERRL, EOMs intact bilaterally, conjunctivae normal, no scleral icterus, papilledema noted, normal visual thibodeaux by confrontation, alignment normal, per iorbital findings normal and no nystagmus Neck/C-Spine: trachea midline, cervical spine nontender, cervical full ROM noted, supple, no meningeal signs and thyroid normal Lymph: no lymphadenopathy noted and no lymphedema noted Chest: inspection of chest normal Respiratory: breath sounds equal bilaterally, normal respiratory effort, clear to auscultation bilaterally, no wheezes, no rales, no retractions and no use of accessory muscles Cardiovascular: heart rate abnormal (tachycardic), regular rhythm noted, no gallop, no rub, no murmur, no JVD, no clicks, peripheral pulses 2+ throughout and no additional abnormal heart sounds Gastrointestinal: abdomen normal to inspection, abdomen soft to palpation, tender to palpation (moderate) and (LLQ), nondistended, normoactive bowel sounds, no masses, no pulsatile mass, no ascites and rectal exam abnormal (deferred) Genitourinary: CVA tenderness noted (left), bladder normal to palpation and external appearance normal Back/Pelvis: no thoracic spine tenderness, no lumbar spine tenderness, thoracic spine ROM normal, lumbar spine ROM normal and no paraspinal muscle tenderness noted Extremities: normal to inspection, normal to palpation, no tenderness, full ROM, no joint enlargement and no deformity Patient reports pain in her lower extremities Neurology: electrophysiology technologist II-XII intact, no movement abnormality noted, no focal motor deficit noted, sensory deficit noted (bilateral feet numb ), deep tendon reflexes 2+ bilaterally, gait abnormality noted (needs assistance to transfer), speech normal, coordination normal, no pronator drift noted, no fasciculations noted and GCS normal Psychiatry: Mental Status Exam documented within this Exam's Psych section mental status grossly normal, oriented x3, thought process normal, cooperative, affect normal, psychomotor activity normal and memory normal Feel stressed/tense/nervous/anxious/difficulty sleeping: to some extent Life stressors: other (none) Life stressor details: Current medical condition Due to disability, difficulty making decisions: No Skin: skin color abnormal Reports (pale), no rash, no lesions, no ecchymosis noted, no wounds, no lacerations, skin turgor normal, no jaundice, no petechiae, no mottling, nails abnormality noted and alopecia noted Progress Note: Objective Labs Labs: CBC WBC 15.2 K/uL (4.3-9.3) H 09/05/24 05:05 RBC 3.7 M/uL (4.00-5.50) L 09/05/24 05:05 Hgb 9.1 gm/dL (12.5-15.8) L 09/05/24 05:05 Hct 27.7 % (35.9-46.7) L 09/05/24 05:05 MCV 75.5 fl (81.0-93.7) L 09/05/24 05:05 MCH 24.9 pg (27.6-32.2) L 09/05/24 05:05 MCHC 33.0 g/dl (33.1-35.3) L 09/05/24 05:05 RDW 16.5 % (11.4-14.2) H 09/05/24 05:05 Plt Count 91 K/uL (152-353) L 09/05/24 05:05 MPV 11.0 fl (6.9-10.8) H 09/05/24 05:05 Gran % 87.7 % (47.8-71.3) H 09/05/24 05:05 Lymph % (Auto) 5.2 % (20.0-43.0) L 09/05/24 05:05 [place] % (Auto) 6.3 % (3.6-9.8) 09/05/24 05:05 Eos % (Auto) 0.3 % (0.4-2.8) L 09/05/24 05:05 Baso % (Auto) 0.5 (0.1-0.85) 09/05/24 05:05 Lymph # (Auto) 0.8 (1.1-3.1) L 09/05/24 05:05 [place] # (Auto) 1.0 (1.1-3.1) L 09/05/24 05:05 Eos # (Auto) 0.0 (0.0-0.2) 09/05/24 05:05 Baso # (Auto) 0.1 (0.0-0.1) 09/05/24 05:05 Absolute Gran (auto) 13.3 (2.3-6.0) H 09/05/24 05:05 BMP Sodium 134 mmol/L (136-145) L 09/05/24 05:05 Potassium 5.5 mmol/L (3.6-5.2) H 09/05/24 05:05 Chloride 102.0 mmol/L (98-107) 09/05/24 05:05 Carbon Dioxide 20 mmol/L (21-32) L 09/05/24 05:05 Anion Gap 12.0 mEq/L (4-14) 09/05/24 05:05 BUN 31 mg/dL (7-18) H 09/05/24 05:05 Creatinine 3.7 mg/dL (0.6-1.3) H* 09/05/24 05:05 Estimated GFR 13.6 (>59.9) 09/05/24 05:05 Glucose 244 mg/dL (70-110) H 09/05/24 05:05 Hemoglobin A1c 10.2 % (4.8-6.0) H 09/04/24 05:00 Calcium 7.8 mg/dL (8.5-10.1) L 09/05/24 05:05 Phosphorus 3.9 mg/dL (2.5-4.9) 09/05/24 05:05 Magnesium 1.8 mg/dL (1.8-2.4) 09/05/24 05:05 Total Bilirubin 4.06 mg/dL (0.0-1.0) H 09/05/24 05:05 AST 62 U/L (15-37) H 09/05/24 05:05 ALT 52 U/L (30-65) 09/05/24 05:05 Alkaline Phosphatase 161 U/L (50-136) H 09/05/24 05:05 Total Protein 6.1 g/dL (6.4-8.2) L 09/05/24 05:05 Albumin 2.4 g/dL (3.4-5.0) L 09/05/24 05:05 Cardiac Enzymes Troponin I High Sens 60.60 ng/L (4.0-60.4) H* 09/05/24 05:05 Liver Function Total Bilirubin 4.06 mg/dL (0.0-1.0) H 09/05/24 05:05 AST 62 U/L (15-37) H 09/05/24 05:05 ALT 52 U/L (30-65) 09/05/24 05:05 Alkaline Phosphatase 161 U/L (50-136) H 09/05/24 05:05 Total Protein 6.1 g/dL (6.4-8.2) L 09/05/24 05:05 Albumin 2.4 g/dL (3.4-5.0) L 09/05/24 05:05 Urine Urine Color Yellow (STRAW/YELL.) 09/04/24 09:30 Urine Appearance Cloudy (CLEAR) 09/04/24 09:30 Ur Specific [place] 1.020 (1.001-1.035) 09/04/24 09:30 Urine Protein 3+ (NEGATIVE) 09/04/24 09:30 Urine Glucose (UA) 4+ (NORMAL) 09/04/24 09:30 Urine Ketones Negative (NEGATIVE) 09/04/24 09:30 Urine Occult Blood 4+ (NEG - TRACE) 09/04/24 09:30 Urine Nitrite Negative (NEGATIVE) 09/04/24 09:30 Urine Bilirubin Negative (NEGATIVE) 09/04/24 09:30 Urine Urobilinogen Normal (NORMAL) 09/04/24 09:30 Ur Leukocyte Esterase Positive (NEGATIVE) 09/04/24 09:30 ECG Attestation: I have reviewed the pertinent ECG results. Prior ECG tracings: available for review Progress Note: A&P Assessment and Plan (1) Sepsis: Qualifiers: Sepsis type: Escherichia coli Sepsis acute organ dysfunction status: with acute organ dysfunction Severe sepsis acute organ dysfunction type: acute renal failure Acute renal failure type: unspecified Severe sepsis shock status: without septic shock Qualified Code(s): A41.51 - Sepsis due to Escherichia coli [E. coli]; R65.20 - Severe sepsis without septic shock; N17.9 - Acute kidney failure, unspecified (2) Sepsis associated hypotension: (3) Hydronephrosis, left: (4) UTI (urinary tract infection): Qualifiers: Urinary tract infection type: site unspecified Hematuria presence: with hematuria Qualified Code(s): N39.0 - Urinary tract infection, site not specified; R31.9 - Hematuria, unspecified (5) Kidney stone: (6) Diabetes: Qualifiers: Diabetes mellitus type: type 2 Diabetes mellitus infection control specialist insulin use: with infection control specialist use Diabetes mellitus complication status: with hyperglycemia Qualified Code(s): E11.65 - Type 2 diabetes mellitus with hyperglycemia; 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 Fall Risk Details Oakes Fall Scale Risk Level: Moderate Fall Risk Current Medications: Current Medications Acetaminophen (Acetaminophen 500 Mg Tablet) 500 mg PO Q6H PRN PRN Reason: MILD PAIN SCALE 1-4 Last Admin: 09/04/24 16:25 Dose: 500 mg Bisacodyl (Bisacodyl 10 Mg Supp.Rect) 10 mg [place] DAILY PRN PRN Reason: Constipation Duloxetine HCl (Duloxetine Hcl 30 Mg Capsule.Dr) 30 mg PO DAILY [facility] Last Admin: 09/05/24 09:32 Dose: 30 mg Fluoxetine HCl (Fluoxetine Hcl 10 Mg Capsule) 10 mg PO DAILY [facility] Last Admin: 09/05/24 09:32 Dose: 10 mg Glimepiride (Glimepiride 2 Mg Tablet) 4 mg PO BID [facility] Last Admin: 09/05/24 09:32 Dose: 4 mg Sodium Chloride (Sodium Chloride) 1,000 mls @ 200 mls/hr IV CONT [facility] Last Infusion: 09/05/24 05:51 Dose: Infused Ceftriaxone Sodium 1 gm/ (Sodium Chloride) 50 mls @ 100 mls/hr IV Q12H [facility] Last Infusion: 09/05/24 01:13 Dose: Infused Levofloxacin/Dextrose (Kyrskdobaqrmm6x 750 Mg/150 Ml) 750 mg in 150 mls @ 75 mls/hr IV Q48H [facility] Last Admin: 09/04/24 20:25 Dose: 75 mls/hr Potassium Chloride (Potassium Cl 10 Meq/100 Ml Sharee) 10 meq in 100 mls @ 100 mls/hr IV ONCE [facility]MANI Potassium Chloride (Potassium Cl 10 Meq/100 Ml Sharee) 10 meq in 100 mls @ 75 mls/hr IV ONCE ARMANI Albumin Human (Albumin Human 25%) 100 mls @ 60 mls/hr IV ONCE [facility]MANI Insulin Glargine-yfgn (Insulin Glargine-Yfgn 100 Unit/Ml Insuln.Pen) 80 unit SUBQ 2100 [facility] Last Admin: 09/04/24 20:54 Dose: Not Given Insulin Human Regular (Insulin Regular, Human 100 Unit/Ml) 0 unit SUBQ ACHS PRN; Protocol PRN Reason: Blood Sugar - High Last Admin: 09/05/24 10:03 Dose: 8 unit Ketorolac Tromethamine (Ketorolac 30 Mg/Ml Inj Vial) 15 mg IVP Q6H PRN PRN Reason: Moderate Pain SCALE 5-7 Stop: 09/09/24 01:04 Last Admin: 09/04/24 17:31 Dose: 15 mg Magnesium Hydroxide (Magnesium, Aluminum Hydroxide 30 Ml Oral.Susp) 30 ml PO DAILY PRN PRN Reason: Heartburn Morphine Sulfate (Morphine Sulfate 4 Mg/Ml Cartridge) 4 mg IV Q6H PRN PRN Reason: Severe Pain SCALE 8-10 Last Admin: 09/04/24 09:49 Dose: 4 mg Ondansetron HCl (Ondansetron Hcl/Pf 4 Mg/2 Ml Vial) 4 mg INJ Q6H PRN PRN Reason: Nausea And Vomiting Last Admin: 09/05/24 10:10 Dose: 4 mg Pantoprazole Sodium (Pantoprazole Sodium 40 Mg Tablet.Dr) 40 mg PO DAILY [facility] Last Admin: 09/05/24 09:32 Dose: 40 mg Time Spent With Patient Time: Total time spent is greater than 50% in coordination of care (as documented) at patient's floor/unit and/or counseling patient: Time with patient: greater than 35 minutes
[2024-09-05 12:09] LABS: Basophils #(Absolute) Auto 0.1 (0.0-0.1); Basophils%(Percent) Auto 0.6 (0.1-0.85); Eosinophils#(Absolute)Auto 0.2 (0.0-0.2); Eosinophils%(Percent) Auto 1.2 % (0.4-2.8); Granulocytes % - Auto 86.9 % (47.8-71.3); Granulocytes#(Absolute)- Auto 13.6 (2.3-6.0); Hematocrit 27.2 % (35.9-46.7); Monocytes #(Absolute)- Auto 0.7 (1.1-3.1); Monocytes %(Percent)- Auto 4.5 % (3.6-9.8); Platelet Count 94 K/uL (152-353); White Blood Count 15.7 K/uL (4.3-9.3)
[2024-09-05 12:26] LABS: Potassium 5.9 mmol/L (3.6-5.2)
[2024-09-05] MEDS: BUMETANIDE 1 MG/4 ML VIAL IVP ONE (13:01)
[2024-09-05] MEDS: ALBUMIN HUMAN 25% 100 ML IV SCH (13:01)
[2024-09-05] MEDS: GI COCKTAIL 30 ML SOLUTION PO PRN (16:39)
[2024-09-05 17:17] LABS: Potassium 4.8 mmol/L (3.6-5.2)
[2024-09-05] MEDS: ENOXAPARIN SODIUM 100 MG/ML SYRINGE SUBQ SCH (17:41)
[2024-09-05] MEDS ORDERED: SODIUM BICARBONATE 10 MEQ/10 ML SYRINGE 50 ML IVP SCH ×2 (19:30→20:30)
[2024-09-05] MEDS: SODIUM BICARBONATE 1 MEQ/ML VIAL IV ONE (20:23)
[2024-09-06] MEDS: BUMETANIDE 1 MG/4 ML VIAL IVP ONE (01:58)
[2024-09-06] MEDS: HYDROCODONE/CHLORPHEN P-STIREX 5 ML SUS.ER.12H PO ONE (01:58)
[2024-09-06 02:08] LABS: PCO2 ABG 31 mmHg (35-45); pH ABG 7.41 (7.35-7.45)
[2024-09-06 02:09] LABS: Base Excess ABG -4.1 mmo1/L (-2-2); Oxygen Saturation ABG 87 % (92-100); PO2 ABG 53 mmHg (60-100)
[2024-09-06 06:52] LABS: Potassium 4.3 mmol/L (3.6-5.2)
[2024-09-06] MEDS ORDERED: ALBUMIN HUMAN 25% 100 ML IV SCH (09:30)
[2024-09-06] MEDS: MAGNESIUM OXIDE 400 MG TABLET PO ONE (09:52)
[2024-09-06] MEDS: SODIUM BICARBONATE 1 MEQ/ML VIAL ONE (09:52)
[2024-09-06] MEDS: SODIUM BICARBONATE 10 MEQ/10 ML SYRINGE 50 ML IVP SCH (10:00)
[2024-09-06] MEDS: SODIUM BICARBONATE IV SCH ×2 (10:52→23:49)
[2024-09-06] MEDS: SODIUM CHLORIDE 0.9% IV SCH (10:52)
[2024-09-06 12:16] LABS: Basophils #(Absolute) Auto 0.1 (0.0-0.1); Basophils%(Percent) Auto 0.8 (0.1-0.85); Eosinophils#(Absolute)Auto 0.1 (0.0-0.2); Eosinophils%(Percent) Auto 0.8 % (0.4-2.8); Granulocytes % - Auto 83.5 % (47.8-71.3); Granulocytes#(Absolute)- Auto 9.6 (2.3-6.0); Hematocrit 26.4 % (35.9-46.7); Mean Corpuscular Volume 73.9 fl (81.0-93.7); Monocytes #(Absolute)- Auto 0.5 (1.1-3.1); Monocytes %(Percent)- Auto 4.6 % (3.6-9.8); Platelet Count 113 K/uL (152-353); White Blood Count 11.5 K/uL (4.3-9.3)
[2024-09-06] MEDS: GABAPENTIN 100 MG CAPSULE PO SCH (12:30)
--- NOTE | 2024-09-06 14:15 | Progress Note ---
Progress Note: Subjective Subjective Interval history: Patient is pending transfer to a higher level of care facility, waiting for an available bed at this time. Troponin is elevated at 370.20, BNP of 562.0, Hgb of 8.8, Hct of 26.4, and WBC of 11.5. Patient's home meds were restarted; she refused Gabapentin. Exam Exam: Patient is in low enrique's position with family at bedside upon entering room for exam. Constitutional: abnormal general appearance (disheveled), distress noted (mild), abnormal body habitus (obese), limitations noted (physical limitations) and alert Vital Signs - 24 hr 09/05/24 14:13 09/05/24 16:00 09/05/24 19:14 Temperature 98.8 F 98.3 F Pulse Rate [Radial ] 106 H 115 H Respiratory Rate 19 16 Blood Pressure 124/76 Blood Pressure [Le ft Arm] 113/69 94/55 Pulse Oximetry 94 L 93 L Oxygen Delivery Me thod Room Air Room Air Oxygen Flow Rate Fraction of Inspir ed Oxygen 09/06/24 00:00 09/06/24 01:58 09/06/24 02:15 Temperature 98.8 F Pulse Rate [Radial ] 112 H Respiratory Rate 18 Blood Pressure 113/68 Blood Pressure [Le ft Arm] 113/63 Pulse Oximetry 90 L 92 L Oxygen Delivery Me thod Room Air Nasal Cannula Oxygen Flow Rate 1 Fraction of Inspir ed Oxygen 24 09/06/24 03:30 09/06/24 03:46 09/06/24 07:58 Temperature 99.0 F 98.9 F Pulse Rate [Radial ] 117 H 109 H Respiratory Rate 23 20 Blood Pressure 125/60 Blood Pressure [Le ft Arm] 125/60 107/60 Pulse Oximetry 93 L 93 L Oxygen Delivery Me thod Nasal Cannula Nasal Cannula Oxygen Flow Rate 1 Fraction of Inspir ed Oxygen 09/06/24 08:05 09/06/24 11:50 Temperature 98.3 F Pulse Rate [Radial ] 109 H Respiratory Rate 20 Blood Pressure Blood Pressure [Le ft Arm] 132/64 Pulse Oximetry 93 L 91 L Oxygen Delivery Me thod Nasal Cannula Nasal Cannula Oxygen Flow Rate 1 1 Fraction of Inspir ed Oxygen 26 HENMT: normocephalic, head/scalp atraumatic, hearing grossly normal bilaterally, external ears normal, EACs normal, TMs abnormal, nasal mucous membranes abnormal (pale), external nose normal, oral mucous membranes abnormal (dry), oropharynx normal, dentition normal and gingiva normal Eyes: PERRL, EOMs intact bilaterally, conjunctivae normal, no scleral icterus, papilledema noted, normal visual thibodeaux by confrontation, alignment normal, periorbital findings normal and no nystagmus Neck/C-Spine: visual inspection normal, trachea midline, cervical spine nontender, cervical full ROM noted, supple, no meningeal signs and thyroid normal Lymph: no lymphadenopathy noted and no lymphedema noted Chest: inspection of chest normal, inspection of breast(s) abnormal (deferred) and palpation of breast(s) abnormal (deferred) Respiratory: breath sounds equal bilaterally, normal respiratory effort, clear to auscultation bilaterally, no wheezes, no rales, no retractions and no use of accessory muscles Cardiovascular: heart rate abnormal (tachycardic), regular rhythm noted, no gallop, no rub, no murmur, no JVD, no clicks, peripheral pulses 2+ throughout and no additional abnormal heart sounds Gastrointestinal: abdomen normal to inspection, abdomen soft to palpation, tender to palpation (moderate) and (LLQ), nondistended, normoactive bowel sounds, no hepatosplenomegaly, no masses, no pulsatile mass, no ascites and rectal exam abnormal (deferred) Genitourinary: CVA tenderness noted (left), bladder normal to palpation, external appearance normal, vaginal abnormality noted (deferred) and cervical abnormality noted (deferred) Back/Pelvis: spine normal to inspection, no thoracic spine tenderness, no lumb ar spine tenderness, thoracic spine ROM normal, lumbar spine ROM normal and no paraspinal muscle tenderness noted Extremities: normal to inspection, normal to palpation, no tenderness, full ROM, no joint enlargement and no deformity Patient reports pain in her lower extremities Neurology: tube cutter II-XII intact, no movement abnormality noted, no focal motor deficit noted, sensory deficit noted (bilateral feet numb ), deep tendon reflexes 2+ bilaterally, gait abnormality noted (needs assistance to transfer), speech normal, coordination normal, no pronator drift noted, no fasciculations noted and GCS normal Psychiatry: Mental Status Exam documented within this Exam's Psych section mental status grossly normal, oriented x3, thought process normal, cooperative, affect normal, psychomotor activity normal and memory normal Skin: skin color abnormal Reports (pale), no rash, no lesions, no ecchymosis noted, no wounds, no lacerations, skin turgor normal, no jaundice, no petechiae, no mottling, nails abnormality noted and alopecia noted Progress Note: Objective Labs Labs: CBC WBC 11.5 K/uL (4.3-9.3) H 09/06/24 12:05 RBC 3.6 M/uL (4.00-5.50) L 09/06/24 12:05 Hgb 8.8 gm/dL (12.5-15.8) L 09/06/24 12:05 Hct 26.4 % (35.9-46.7) L 09/06/24 12:05 MCV 73.9 fl (81.0-93.7) L 09/06/24 12:05 MCH 24.6 pg (27.6-32.2) L 09/06/24 12:05 MCHC 33.3 g/dl (33.1-35.3) 09/06/24 12:05 RDW 16.5 % (11.4-14.2) H 09/06/24 12:05 Plt Count 113 K/uL (152-353) L 09/06/24 12:05 MPV 10.4 fl (6.9-10.8) 09/06/24 12:05 Gran % 83.5 % (47.8-71.3) H 09/06/24 12:05 Lymph % (Auto) 10.3 % (20.0-43.0) L 09/06/24 12:05 [place] % (Auto) 4.6 % (3.6-9.8) 09/06/24 12:05 Eos % (Auto) 0.8 % (0.4-2.8) 09/06/24 12:05 Baso % (Auto) 0.8 (0.1-0.85) 09/06/24 12:05 Lymph # (Auto) 1.2 (1.1-3.1) 09/06/24 12:05 [place] # (Auto) 0.5 (1.1-3.1) L 09/06/24 12:05 Eos # (Auto) 0.1 (0.0-0.2) 09/06/24 12:05 Baso # (Auto) 0.1 (0.0-0.1) 09/06/24 12:05 Absolute Gran (auto) 9.6 (2.3-6.0) H 09/06/24 12:05 BMP Sodium 138 mmol/L (136-145) 09/06/24 06:15 Potassium 4.3 mmol/L (3.6-5.2) 09/06/24 06:15 Chloride 104.0 mmol/L (98-107) 09/06/24 06:15 Carbon Dioxide 20 mmol/L (21-32) L 09/06/24 06:15 Anion Gap 14.0 mEq/L (4-14) 09/06/24 06:15 BUN 39 mg/dL (7-18) H 09/06/24 06:15 Creatinine 3.6 mg/dL (0.6-1.3) H 09/06/24 06:15 Estimated GFR 14.0 (>59.9) 09/06/24 06:15 Glucose 181 mg/dL (70-110) H 09/06/24 06:15 Hemoglobin A1c 10.2 % (4.8-6.0) H 09/04/24 05:00 Calcium 7.6 mg/dL (8.5-10.1) L 09/06/24 06:15 Phosphorus 3.1 mg/dL (2.5-4.9) 09/06/24 06:15 Magnesium 1.7 mg/dL (1.8-2.4) L 09/06/24 06:15 Total Bilirubin 6.48 mg/dL (0.0-1.0) H 09/06/24 06:15 AST 54 U/L (15-37) H 09/06/24 06:15 ALT 59 U/L (30-65) 09/06/24 06:15 Alkaline Phosphatase 249 U/L (50-136) H 09/06/24 06:15 Total Protein 6.3 g/dL (6.4-8.2) L 09/06/24 06:15 Albumin 2.2 g/dL (3.4-5.0) L 09/06/24 06:15 Cardiac Enzymes Troponin I High Sens 370.20 ng/L (4.0-60.4) H* 09/06/24 11:50 Liver Function Total Bilirubin 6.48 mg/dL (0.0-1.0) H 09/06/24 06:15 AST 54 U/L (15-37) H 09/06/24 06:15 ALT 59 U/L (30-65) 09/06/24 06:15 Alkaline Phosphatase 249 U/L (50-136) H 09/06/24 06:15 Total Protein 6.3 g/dL (6.4-8.2) L 09/06/24 06:15 Albumin 2.2 g/dL (3.4-5.0) L 09/06/24 06:15 Urine Urine Color Yellow (STRAW/YELL.) 09/04/24 09:30 Urine Appearance Cloudy (CLEAR) 09/04/24 09:30 Ur Specific [place] 1.020 (1.001-1.035) 09/04/24 09:30 Urine Protein 3+ (NEGATIVE) 09/04/24 09:30 Urine Glucose (UA) 4+ (NORMAL) 09/04/24 09:30 Urine Ketones Negative (NEGATIVE) 09/04/24 09:30 Urine Occult Blood 4+ (NEG - TRACE) 09/04/24 09:30 Urine Nitrite Negative (NEGATIVE) 09/04/24 09:30 Urine Bilirubin Negative (NEGATIVE) 09/04/24 09:30 Urine Urobilinogen Normal (NORMAL) 09/04/24 09:30 Ur Leukocyte Esterase Positive (NEGATIVE) 09/04/24 09:30 Imaging Chest x-ray: Radiologist's impression: XR CHEST 2V Date of Service: 09/06/24 HISTORY: couh and hypoxia; cross table lateral is provided with limited range of positioning. COMPARISON STUDY: Chest x-ray 09/03/2024 TECHNIQUE: Two views of the chest frontal and lateral projections FINDINGS: Lungs are expanded. Patchy alveolar infiltrates scattered in both lungs. Mild cardiac silhouette enlargement. Bones appear intact. IMPRESSION: Patchy alveolar infiltrates scattered in both lungs with mild cardiac silhouette enlargement. Progress Note: A&P Assessment and Plan (1) Sepsis: Qualifiers: Sepsis type: Escherichia coli Sepsis acute organ dysfunction status: with acute organ dysfunction Severe sepsis acute organ dysfunction type: acute renal failure Acute renal failure type: unspecified Severe sepsis shock status: without septic shock Qualified Code(s): A41.51 - Sepsis due to Esc herichia coli [E. coli]; R65.20 - Severe sepsis without septic shock; N17.9 - Acute kidney failure, unspecified (2) Sepsis associated hypotension: (3) Hydronephrosis, left: (4) UTI (urinary tract infection): Qualifiers: Urinary tract infection type: site unspecified Hematuria presence: with hematuria Qualified Code(s): N39.0 - Urinary tract infection, site not specified; R31.9 - Hematuria, unspecified (5) Kidney stone: (6) Diabetes: Qualifiers: Diabetes mellitus type: type 2 Diabetes mellitus penitentiary insulin use: with terminologist use Diabetes mellitus complication status: with hyperglycemia Qualified Code(s): E11.65 - Type 2 diabetes mellitus with hyperglycemia; 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 Pending transfer to a higher level of care facility Fall Risk Details Oakes Fall Scale Risk Level: Moderate Fall Risk Current Medications: Current Medications Acetaminophen (Acetaminophen 500 Mg Tablet) 500 mg PO Q6H PRN PRN Reason: MILD PAIN SCALE 1-4 Last Admin: 09/05/24 17:51 Dose: 500 mg Bisacodyl (Bisacodyl 10 Mg Supp.Rect) 10 mg [place] DAILY PRN PRN Reason: Constipation Duloxetine HCl (Duloxetine Hcl 30 Mg Capsule.Dr) 30 mg PO DAILY [facility] Last Admin: 09/06/24 09:23 Dose: 30 mg Fluoxetine HCl (Fluoxetine Hcl 10 Mg Capsule) 10 mg PO DAILY [facility] Last Admin: 09/06/24 09:23 Dose: 10 mg Gabapentin (Gabapentin 100 Mg Capsule) 100 mg PO BID [facility] Last Admin: 09/06/24 12:30 Dose: Not Given Glimepiride (Glimepiride 2 Mg Tablet) 4 mg PO BID [facility] Last Admin: 09/06/24 09:24 Dose: 4 mg Ceftriaxone Sodium 1 gm/ (Sodium Chloride) 50 mls @ 100 mls/hr IV Q12H [facility] Last Infusion: 09/06/24 11:30 Dose: Infused Levofloxacin/Dextrose (Hljtccnzjxcnu7s 750 Mg/150 Ml) 750 mg in 150 mls @ 75 mls/hr IV Q48H [facility] Last Admin: 09/04/24 20:25 Dose: 75 mls/hr Potassium Chloride (Potassium Cl 10 Meq/100 Ml Sharee) 10 meq in 100 mls @ 100 mls/hr IV ONCE [facility] Potassium Chloride (Potassium Cl 10 Meq/100 Ml Sharee) 10 meq in 100 mls @ 75 mls/hr IV ONCE [facility] Albumin Human (Albumin Human 25%) 100 mls @ 60 mls/hr IV ONCE [facility] Last Infusion: 09/06/24 11:33 Dose: Infused Albumin Human (Albumin Human 25%) 100 mls @ 60 mls/hr IV ONCE [facility] Sodium Bicarbonate 100 meq/ (Sodium Chloride) 1,100 mls @ 100 mls/hr IV CONT [facility] Stop: 09/06/24 22:00 Last Admin: 09/06/24 10:52 Dose: Not Given Sodium Bicarbonate 100 meq/ (Sterile Water) 1,100 mls @ 100 mls/hr IV CONT [facility] Insulin Glargine-yfgn (Insulin Glargine-Yfgn 100 Unit/Ml Insuln.Pen) 80 unit SUBQ 2100 [facility] Last Admin: 09/05/24 20:02 Dose: Not Given Insulin Human Regular (Insulin Regular, Human 100 Unit/Ml) 0 unit SUBQ ACHS PRN; Protocol PRN Reason: Blood Sugar - High Last Admin: 09/05/24 10:03 Dose: 8 unit Ketorolac Tromethamine (Ketorolac 30 Mg/Ml Inj Vial) 15 mg IVP Q6H PRN PRN Reason: Moderate Pain SCALE 5-7 Stop: 09/09/24 01:04 Last Admin: 09/05/24 15:11 Dose: 15 mg Magnesium Hydroxide (Magnesium, Aluminum Hydroxide 30 Ml Oral.Susp) 30 ml PO DAILY PRN PRN Reason: Heartburn Morphine Sulfate (Morphine Sulfate 4 Mg/Ml Cartridge) 4 mg IV Q6H PRN PRN Reason: Severe Pain SCALE 8-10 Last Admin: 09/04/24 09:49 Dose: 4 mg Multi-Ingredient GI Drug (Gi Cocktail 30 Ml Solution) 30 ml PO Q2H PRN PRN Reason: Dyspepsia Last Admin: 09/05/24 16:39 Dose: 30 ml Ondansetron HCl (Ondansetron Hcl/Pf 4 Mg/2 Ml Vial) 4 mg INJ Q6H PRN PRN Reason: Nausea And Vomiting Last Admin: 09/06/24 12:32 Dose: 4 mg Pantoprazole Sodium (Pantoprazole Sodium 40 Mg Tablet.Dr) 40 mg PO DAILY [facility] Last Admin: 09/06/24 09:24 Dose: 40 mg Time Spent With Patient Time: Total time spent is greater than 50% in coordination of care (as documented) at patient's floor/unit and/or counseling patient:
[2024-09-06] MEDS: WATER FOR INJECTION STERILE IV SCH (23:49)
[2024-09-07] MEDS: SODIUM BICARBONATE 1 MEQ/ML VIAL ONE ×2 (01:24)
[2024-09-07 06:43] LABS: Basophils #(Absolute) Auto 0.1 (0.0-0.1); Basophils%(Percent) Auto 0.9 (0.1-0.85); Eosinophils#(Absolute)Auto 0.1 (0.0-0.2); Eosinophils%(Percent) Auto 0.8 % (0.4-2.8); Granulocytes % - Auto 80.3 % (47.8-71.3); Hematocrit 25.8 % (35.9-46.7); Mean Corpuscular Volume 72.7 fl (81.0-93.7); Monocytes #(Absolute)- Auto 0.5 (1.1-3.1); Monocytes %(Percent)- Auto 5.3 % (3.6-9.8); Platelet Count 123 K/uL (152-353); White Blood Count 8.8 K/uL (4.3-9.3)
[2024-09-07 06:57] LABS: Potassium 3.5 mmol/L (3.6-5.2)
[2024-09-07] MEDS: POTASSIUM CHLORIDE 20 MEQ TAB.ER.PRT PO ONE ×2 (09:48→10:18)
[2024-09-07] MEDS: ALBUMIN HUMAN 25% 100 ML IV SCH (10:52)
--- NOTE | 2024-09-07 13:53 | Progress Note ---
Progress Note: Subjective Subjective Interval history: Patient is pending transfer to a higher level of care facility, waiting for an available bed at this time. Patient chief complaint of general weakness, dizziness, loss of appetite, and constipation. This morning has felt nauseous but resolved with Zofran. Provider told patient she is to get up and move to recliner for a bit today, with breaks back in bed as needed; this is precautionary to preventing pneumonia. Smart catheter has been removed at this time. Patient states she has a loss of appetite, Ensure dietary supplemental drink will be offered 3X a day and as requested. Physical Therapy is to come in to help patient regain strength and ambulating in a safe manner. Chest physiotherapy will begin today. Exam Exam: Patient in enrique's position upon entering room for exam. Family member at bedside at the time of exam. Constitutional: abnormal general appearance (disheveled), (chronically ill) and (lethargic), distress noted (mild), abnormal body habitus (obese), limitations noted (physical limitations) and alert Vital Signs - 24 hr 09/06/24 16:00 09/06/24 16:17 09/06/24 19:38 Temperature 98.3 F 98.3 F 98.1 F Pulse Rate [Radial ] 107 H 107 H 114 H Respiratory Rate 19 19 19 Blood Pressure [Le ft Arm] 124/70 124/70 135/75 Pulse Oximetry 92 L 92 L 91 L Oxygen Delivery Me thod Nasal Cannula Nasal Cannula Room Air Oxygen Flow Rate 1 1 Fraction of Inspir ed Oxygen 09/06/24 20:44 09/06/24 23:48 09/07/24 03:35 Temperature 97.8 F 98.5 F Pulse Rate [Radial ] 108 H 114 H Respiratory Rate 20 22 Blood Pressure [Le ft Arm] 127/72 126/70 Pulse Oximetry 94 L 94 L 92 L Oxygen Delivery Me thod Nasal Cannula Nasal Cannula Nasal Cannula Oxygen Flow Rate 1 Fraction of Inspir ed Oxygen 24 09/07/24 07:55 09/07/24 10:21 09/07/24 12:00 Temperature 98.5 F 98.4 F Pulse Rate [Radial ] 107 H 104 H Respiratory Rate 19 20 Blood Pressure [Le ft Arm] 141/79 104/66 Pulse Oximetry 91 L 95 Oxygen Delivery Me thod Nasal Cannula Nasal Cannula Nasal Cannula Oxygen Flow Rate 1 1 2 Fraction of Inspir ed Oxygen 24 HENMT: normocephalic, head/scalp atraumatic, hearing grossly normal bilaterally, external ears normal, EACs normal, TMs abnormal, nasal mucous membranes abnormal (pale), external nose normal, oral mucous membranes abnormal (dry), oropharynx normal, dentition normal and gingiva normal Eyes: PERRL, EOMs intact bilaterally, conjunctivae normal, no scleral icterus, papilledema noted, normal visual thibodeaux by confrontation, alignment normal, periorbital findings normal and no nystagmus Neck/C-Spine: visual inspection normal, trachea midline, cervical spine nonten james, cervical full ROM noted, supple, no meningeal signs and thyroid normal Lymph: no lymphadenopathy noted and no lymphedema noted Chest: inspection of chest normal and palpation of chest normal Respiratory: breath sounds equal bilaterally, normal respiratory effort, auscultation abnormal (diminished breath sound), no wheezes, no rales, no retractions and no use of accessory muscles Cardiovascular: heart rate abnormal (tachycardic), regular rhythm noted, no gallop, no rub, no murmur, no JVD, no clicks, peripheral pulses 2+ throughout and no additional abnormal heart sounds Gastrointestinal: abdomen normal to inspection, abdomen soft to palpation, tender to palpation (moderate) and (RLQ), nondistended, normoactive bowel sounds, no hepatosplenomegaly, no masses, no pulsatile mass and no ascites Genitourinary: CVA tenderness noted (left), bladder normal to palpation and external appearance normal Back/Pelvis: spine normal to inspection, no thoracic spine tenderness, no lumbar spine tenderness, thoracic spine ROM normal, lumbar spine ROM normal and no paraspinal muscle tenderness noted Extremities: normal to inspection, normal to palpation, no tenderness, full ROM, no joint enlargement and no deformity Patient reports pain in her lower extremities 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, no movement abnormality noted, no focal motor deficit noted, sensory deficit noted (bilateral feet numb ), deep tendon reflexes 2+ bilaterally, gait abnormality noted (needs assistance to transfer), speech normal, coordination normal, no pronator drift noted, no fasciculations noted and GCS normal Psychiatry: Mental Status Exam documented within this Exam's Psych section mental status grossly normal, oriented x3, thought process normal, cooperative, affect normal, psychomotor activity normal and memory normal Skin: skin color abnormal Reports (pale), no rash, no lesions, no ecchymosis noted, no wounds, no lacerations, skin turgor normal, no jaundice, no petechiae, no mottling, nails abnormality noted and alopecia noted Progress Note: Objective Labs Labs: CBC WBC 8.8 K/uL (4.3-9.3) 09/07/24 06:10 RBC 3.5 M/uL (4.00-5.50) L 09/07/24 06:10 Hgb 8.8 gm/dL (12.5-15.8) L 09/07/24 06:10 Hct 25.8 % (35.9-46.7) L 09/07/24 06:10 MCV 72.7 fl (81.0-93.7) L 09/07/24 06:10 MCH 24.8 pg (27.6-32.2) L 09/07/24 06:10 MCHC 34.1 g/dl (33.1-35.3) 09/07/24 06:10 RDW 16.4 % (11.4-14.2) H 09/07/24 06:10 Plt Count 123 K/uL (152-353) L 09/07/24 06:10 MPV 9.9 fl (6.9-10.8) 09/07/24 06:10 Gran % 80.3 % (47.8-71.3) H 09/07/24 06:10 Lymph % (Auto) 12.7 % (20.0-43.0) L 09/07/24 06:10 Mason % (Auto) 5.3 % (3.6-9.8) 09/07/24 06:10 Eos % (Auto) 0.8 % (0.4-2.8) 09/07/24 06:10 Baso % (Auto) 0.9 (0.1-0.85) H 09/07/24 06:10 Lymph # (Auto) 1.1 (1.1-3.1) 09/07/24 06:10 Mason # (Auto) 0.5 (1.1-3.1) L 09/07/24 06:10 Eos # (Auto) 0.1 (0.0-0.2) 09/07/24 06:10 Baso # (Auto) 0.1 (0.0-0.1) 09/07/24 06:10 Absolute Gran (auto) 7.0 (2.3-6.0) H 09/07/24 06:10 BMP Sodium 137 mmol/L (136-145) 09/07/24 06:10 Potassium 3.5 mmol/L (3.6-5.2) L 09/07/24 06:10 Chloride 100.0 mmol/L (98-107) 09/07/24 06:10 Carbon Dioxide 27 mmol/L (21-32) 09/07/24 06:10 Anion Gap 10.0 mEq/L (4-14) 09/07/24 06:10 BUN 37 mg/dL (7-18) H 09/07/24 06:10 Creatinine 3.1 mg/dL (0.6-1.3) H 09/07/24 06:10 Estimated GFR 16.8 (>59.9) 09/07/24 06:10 Glucose 265 mg/dL (70-110) H 09/07/24 06:10 Hemoglobin A1c 10.2 % (4.8-6.0) H 09/04/24 05:00 Calcium 8.3 mg/dL (8.5-10.1) L 09/07/24 06:10 Phosphorus 3.1 mg/dL (2.5-4.9) 09/07/24 06:10 Magnesium 1.8 mg/dL (1.8-2.4) 09/07/24 06:10 Total Bilirubin 3.64 mg/dL (0.0-1.0) H 09/07/24 06:10 AST 40 U/L (15-37) H 09/07/24 06:10 ALT 50 U/L (30-65) 09/07/24 06:10 Alkaline Phosphatase 249 U/L (50-136) H 09/07/24 06:10 Total Protein 6.6 g/dL (6.4-8.2) 09/07/24 06:10 Albumin 2.1 g/dL (3.4-5.0) L 09/07/24 06:10 Cardiac Enzymes Troponin I High Sens 370.20 ng/L (4.0-60.4) H* 09/06/24 11:50 Liver Function Total Bilirubin 3.64 mg/dL (0.0-1.0) H 09/07/24 06:10 AST 40 U/L (15-37) H 09/07/24 06:10 ALT 50 U/L (30-65) 09/07/24 06:10 Alkaline Phosphatase 249 U/L (50-136) H 09/07/24 06:10 Total Protein 6.6 g/dL (6.4-8.2) 09/07/24 06:10 Albumin 2.1 g/dL (3.4-5.0) L 09/07/24 06:10 Urine Urine Color Yellow (STRAW/YELL.) 09/04/24 09:30 Urine Appearance Cloudy (CLEAR) 09/04/24 09:30 Ur Specific [place] 1.020 (1.001-1.035) 09/04/24 09:30 Urine Protein 3+ (NEGATIVE) 09/04/24 09:30 Urine Glucose (UA) 4+ (NORMAL) 09/04/24 09:30 Urine Ketones Negative (NEGATIVE) 09/04/24 09:30 Urine Occult Blood 4+ (NEG - TRACE) 09/04/24 09:30 Urine Nitrite Negative (NEGATIVE) 09/04/24 09:30 Urine Bilirubin Negative (NEGATIVE) 09/04/24 09:30 Urine Urobilinogen Normal (NORMAL) 09/04/24 09:30 Ur Leukocyte Esterase Positive (NEGATIVE) 09/04/24 09:30 Imaging Chest x-ray: Radiologist's impression: XR CHEST 2V Date of Service: 09/06/24 HISTORY: cough and hypoxia; cross table lateral is provided with limited range of positioning. COMPARISON STUDY: Chest x-ray 09/03/2024 TECHNIQUE: Two views of the chest frontal and lateral projections FINDINGS: Lungs are expanded. Patchy alveolar infiltrates scattered in both lungs. Mild cardiac silhouette enlargement. Bones appear intact. IMPRESSION: Patchy alveolar infiltrates scattered in both lungs with mild cardiac silhouette enlargement. CT scan - abdomen: Radiologist's impression: CT ABDOMEN PELVIS WO CON Date of Service: 09/06/24 HISTORY: hydronephrosis, kidney stones, pain; COMPARISON: CT abdomen and pelvis 09/04/2024 TECHNIQUE: Multiple CT axial images of the abdomen and pelvis were obtained without IV contrast. Coronal and sagittal images were reconstructed. Dose reduction techniques included Automated Exposure Control (AEC) and adjustment of mA and kV. FINDINGS: The patient has anasarca with generalized edema. This is manifested as increased density in the subcutaneous fat and the intra-abdominal fat. This is associated with trace left and small right pleural effusions. Heart size is normal. Few linear areas in the lung bases are probably atelectasis. Diffuse decreased density of the liver is compatible with hepatic steatosis. Liver is large measuring about 23 cm. The gallbladder has no edema around it. The spleen is normal in size and shape. The adrenal glands are normal. The pancreas is normal. No abnormal calcifications are present in the kidneys, ureters, or urinary bladder. The kidneys have normal size and shape. There is no hydronephrosis or significant perirenal edema. The urinary bladder is contracted around a Smart balloon catheter. The bowel is not dilated. There is no wall thickening in the bowel or edema around the bowel. The appendix is normal in size with no inflammation around it. No evidence of appendicitis. There is no significant bone abnormality. IMPRESSION: 1. Anasarca with pleural effusions 2. Hepatomegaly with steatosis Progress Note: A&P Assessment and Plan (1) Sepsis: Qualifiers: Sepsis type: Escherichia coli Sepsis acute organ dysfunction status: with acute organ dysfunction Severe sepsis acute organ dysfunction type: acute renal failure Acute renal failure type: unspecified Severe sepsis shock status: without septic shock Qualified Code(s): A41.51 - Sepsis due to Escherichia coli [E. 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 Diabetes mellitus complication status: with hyperglycemia Qualified Code(s): E11.65 - Type 2 diabetes mellitus with hyperglycemia; Z79.4 - correction (current) use of insulin (7) Hypertension: Qualifiers: Hypertension type: primary hypertension Qualified Code(s): I10 - Essential (primary) hypertension (8) Chest pain: Qualifiers: Chest pain type: unspecified Qualified Code(s): R07.9 - Chest pain, unspecified (9) Constipation: Qualifiers: Constipation type: slow transit constipation Qualified Code(s): K59.01 - Slow transit constipation (10) Hypoalbuminemia: Plan Albumin 100 mls @ 60 mls/hr IV ONCE Levalbuterol Hcl 1.25 mg INH RQ6 Budesonide 0.5 mg INH RBID Encourage Ensure drinks due to loss of appetite Continue to monitor labs and symptoms for improvement. Pending transfer to a higher level of care facility Fall Risk Details Oakes Fall Scale Risk Level: Moderate Fall Risk Current Medications: Current Medications Acetaminophen (Acetaminophen 500 Mg Tablet) 500 mg PO Q6H PRN PRN Reason: MILD PAIN SCALE 1-4 Last Admin: 09/05/24 17:51 Dose: 500 mg Bisacodyl (Bisacodyl 10 Mg Supp.Rect) 10 mg [place] DAILY PRN PRN Reason: Constipation Budesonide (Budesonide 0.5 Mg/2 Ml Ampul.Neb) 0.5 mg INH RBID ARMANI Duloxetine HCl (Duloxetine Hcl 30 Mg Capsule.Dr) 30 mg PO DAILY [facility] Last Admin: 09/07/24 10:17 Dose: Not Given Fluoxetine HCl (Fluoxetine Hcl 10 Mg Capsule) 10 mg PO DAILY [facility] Last Admin: 09/07/24 10:24 Dose: Not Given Gabapentin (Gabapentin 100 Mg Capsule) 100 mg PO BID [facility] Last Admin: 09/07/24 10:18 Dose: Not Given Glimepiride (Glimepiride 2 Mg Tablet) 4 mg PO BID [facility] Last Admin: 09/07/24 09:45 Dose: 4 mg Ceftriaxone Sodium 1 gm/ (Sodium Chloride) 50 mls @ 100 mls/hr IV Q12H [facility] Last Infusion: 09/07/24 11:17 Dose: Infused Levofloxacin/Dextrose ([id number] 750 Mg/150 Ml) 750 mg in 150 mls @ 75 mls/hr IV Q48H [facility] Last Admin: 09/06/24 21:27 Dose: 75 mls/hr Potassium Chloride (Potassium Cl 10 Meq/100 Ml Sharee) 10 meq in 100 mls @ 100 mls/hr IV ONCE ARMANI Sodium Bicarbonate 100 meq/ (Sterile Water) 1,100 mls @ 100 mls/hr IV CONT [facility] Last Admin: 09/07/24 10:46 Dose: 100 mls/hr Albumin Human (Albumin Human 25%) 100 mls @ 60 mls/hr IV ONCE [facility] Last Admin: 09/07/24 10:52 Dose: 60 mls/hr Insulin Glargine-yfgn (Insulin Glargine-Yfgn 100 Unit/Ml Insuln.Pen) 80 unit SUBQ 2100 [facility] Last Admin: 09/06/24 21:26 Dose: Not Given Insulin Human Regular (Insulin Regular, Human 100 Unit/Ml) 0 unit SUBQ ACHS PRN; Protocol PRN Reason: Blood Sugar - High Last Admin: 09/06/24 21:29 Dose: 4 unit Ketorolac Tromethamine (Ketorolac 30 Mg/Ml Inj Vial) 15 mg IVP Q6H PRN PRN Reason: Moderate Pain SCALE 5-7 Stop: 09/09/24 01:04 Last Admin: 09/05/24 15:11 Dose: 15 mg Levalbuterol HCl (Levalbuterol Hcl 1.25 Mg/3 Ml Vial.Neb) 1.25 mg INH RQ6 [facility] Magnesium Hydroxide (Magnesium, Aluminum Hydroxide 30 Ml Oral.Susp) 30 ml PO DAILY PRN PRN Reason: Heartburn Morphine Sulfate (Morphine Sulfate 4 Mg/Ml Cartridge) 4 mg IV Q6H PRN PRN Reason: Severe Pain SCALE 8-10 Last Admin: 09/04/24 09:49 Dose: 4 mg Multi-Ingredient GI Drug (Gi Cocktail 30 Ml Solution) 30 ml PO Q2H PRN PRN Reason: Dyspepsia Last Admin: 09/05/24 16:39 Dose: 30 ml Ondansetron HCl (Ondansetron Hcl/Pf 4 Mg/2 Ml Vial) 4 mg INJ Q6H PRN PRN Reason: Nausea And Vomiting Last Admin: 09/07/24 07:53 Dose: 4 mg Pantoprazole Sodium (Pantoprazole Sodium 40 Mg Tablet.Dr) 40 mg PO DAILY [facility] Last Admin: 09/07/24 09:45 Dose: 40 mg Time Spent With Patient Time: Total time spent is greater than 50% in coordination of care (as documented) at patient's floor/unit and/or counseling patient:
[2024-09-07] MEDS: levalbuterol HCL 1.25 MG/3 ML VIAL.NEB INH SCH (14:28)
[2024-09-07] MEDS: MAGNESIUM HYDROXIDE 400 MG/5 ML ORAL.SUSP PO ONE (17:43)
[2024-09-07] MEDS: BUDESONIDE 0.5 MG/2 ML AMPUL.NEB INH SCH (20:07)
[2024-09-07] MEDS: LACTULOSE 20 GM/30 ML SOLUTION PO ONE (20:58)
[2024-09-07] MEDS: LACTULOSE 20 GM/30 ML SOLUTION ONE (22:36)
[2024-09-08 01:57] VITALS: BP 145/84; PULSE 101; RESP 17; TEMP 98.2
--- NOTE | 2024-09-20 10:13 | Discharge Summary ---
DS: Providers Provider Date of admission: 09/04/24 01:05 Primary care physician: DINORAH PATEL MD Admitting clinician: Emil Tsang Attending physician on admission: Flori Ovalles Consults: 09/04/24 11:03 Consult to Physical Therapy Routine Comment: Consulting Provider: Reason for consultation: dizziness Physician Instructions: evaluate and treat 09/06/24 11:35 Consult to Physical Therapy Routine Comment: Consulting Provider: Reason for consultation: ROM, eval and treat Has provider been notified: Yes Physician Instructions: ROM, eval and treat 09/07/24 09:43 Consult to Physical Therapy Routine Comment: Consulting Provider: Reason for consultation: developing pneumonia Physician Instructions: chest physiotherapy along with maneuvers for dizziness thanks Attending physician on discharge: Flori Ovalles Discharging clinician: Flori Ovalles Anticipated date of discharge: 09/20/24 DS: Diagnosis Discharge Diagnosis (1) Sepsis: Qualifiers: Sepsis type: Escherichia coli Sepsis acute organ dysfunction status: with acute organ dysfunction Severe sepsis acute organ dysfunction type: acute renal failure Acute renal failure type: unspecified Severe sepsis shock status: without septic shock Qualified Code(s): A41.51 - Sepsis due to Escherichia coli [E. 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 use Diabetes mellitus complication status: with hyperglycemia Qualified Code(s): E11.65 - Type 2 diabetes mellitus with hyperglycemia; Z79.4 - long term care pharmacist (current) use of insulin (7) Hypertension: Qualifiers: Hypertension type: primary hypertension Qualified Code(s): I10 - Essential (primary) hypertension (8) Chest pain: Qualifiers: Chest pain type: unspecified Qualified Code(s): R07.9 - Chest pain, unspecified (9) Constipation: Qualifiers: Constipation type: slow transit constipation Qualified Code(s): K59.01 - Slow transit constipation (10) Hypoalbuminemia: Plan Transfer to a higher level of care facility. DS: Summary Hospital Course Hospital Course: 59-year-old female patient presented to ER with complaint of left lower quadrant abdominal pain and chest pain has been evaluated by physical exam, CBC, CMP, EKG, CT of the abdomen pelvis without contrast, plain film chest x-ray, Troponin, and swabs for influenza with results as noted in charting. Patient's labs reveal patient to be hyperglycemic, hypokalemic, hypoalbuminemic, adjusted sodium is within normal limits, patient is negative for influenza, and CT reveals patient to have a 4 mm nonobstructing renal calculi. Patient reports that she continues to be weak and dizzy and that her abdominal pain continues despite pain medication. Patient's glucose level is responding today; however, it is slow in coming down. Patient's labs also reveal her to be mildly dehydrated which will be replaced with normal saline. Patient will be admitted to observation on the [facility] floor for ongoing evaluation of cardiac enzymes and cardiac rule out, hyperglycemia, dehydration, pain control, and generalized weakness. Day one of hospital stay, patient states she still feels dizzy and weak. 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 Peterson. Blood sugar level was elevated this morning at 430. Provider will increase fluids from 100 to 125/hr and add medication for bowel movement. Request for Physical Therapy was put in for evaluation for inner ear. Day two of hospital stay, BP dropped yesterday around 6 pm with the spiking of a fever up to 102.7. Tylenol and Ibuprofen resolved the fever. Fluids and reverse Trendelenburg and adding Levaquin to the antibiotics has resolved the issues with the BP and tachycardia. Patient was able to eat breakfast and urinated finally afterwards. Albumin dropped out with hydration; replaced without incident. Patient troponin, liver, and renal markers continue to climb despite medications and fluids. Day three of hospital stay, patient is pending transfer to a higher level of care facility, waiting for an available bed at this time. Troponin is elevated at 370.20, BNP of 562.0, Hgb of 8.8, Hct of 26.4, and WBC of 11.5. Patient's home meds were restarted; she refused Gabapentin. Patient is continued to be monitored closely pending transfer. Day four of hospital stay, patient is pending transfer to a higher level of care facility, waiting for an available bed at this time. Patient chief complaint of general weakness, dizziness, loss of appetite, and constipation. This morning has felt nauseous but resolved with Zofran. Provider told patient she is to get up and move to recliner for a bit today, with breaks back in bed as needed; this is precautionary to preventing pneumonia. Smart catheter has been removed at this time. Patient states she has a loss of appetite, Ensure dietary supplemental drink will be offered 3X a day and as requested. Physical Therapy is to come in to help patient regain strength and ambulating in a safe manner. Chest physiotherapy will begin today. Day five of hospital stay, patient received an available bed at [facility]. Patient's nurse gave report to accepting facility nurse, Maddi Mane RN. EMS was notified and transfer procedures were initiated. Patient and daughter, at bedside, verbalized understanding and acceptance for continuation of care with [facility]. Patient was alert and oriented, no distress noted at the time EMS left with her on a stretcher at 0044. Status at Discharge Functional status at discharge: uses cane/walker Overall status at discharge: patient is not back to baseline Time Spent with Patient Time attestation: Total time spent providing and/or coordinating discharge services: Time spent: greater than 30 minutes Exam Exam: Patient transferred via EMS to [facility] for higher level of care. Constitutional: abnormal general appearance (disheveled), (chronically ill) and (lethargic), no apparent distress, abnormal body habitus (obese), limitations noted (physical limitations) and alert Vital Signs - 24 hr 09/06/24 16:00 09/06/24 16:17 09/06/24 19:38 Temperature 98.3 F 98.3 F 98.1 F Pulse Rate [Radial ] 107 H 107 H 114 H Respiratory Rate 19 19 19 Blood Pressure [Le ft Arm] 124/70 124/70 135/75 Pulse Oximetry 92 L 92 L 91 L Oxygen Delivery Me thod Nasal Cannula Nasal Cannula Room Air Oxygen Flow Rate 1 1 Fraction of Inspir ed Oxygen 09/06/24 20:44 09/06/24 23:48 09/07/24 03:35 Temperature 97.8 F 98.5 F Pulse Rate [Radial ] 108 H 114 H Respiratory Rate 20 22 Blood Pressure [Le ft Arm] 127/72 126/70 Pulse Oximetry 94 L 94 L 92 L Oxygen Delivery Me thod Nasal Cannula Nasal Cannula Nasal Cannula Oxygen Flow Rate 1 Fraction of Inspir ed Oxygen 24 09/07/24 07:55 09/07/24 10:21 09/07/24 12:00 Temperature 98.5 F 98.4 F Pulse Rate [Radial ] 107 H 104 H Respiratory Rate 19 20 Blood Pressure [Le ft Arm] 141/79 104/66 Pulse Oximetry 91 L 95 Oxygen Delivery Me thod Nasal Cannula Nasal Cannula Nasal Cannula Oxygen Flow Rate 1 1 2 Fraction of Inspir ed Oxygen 24 HENMT: normocephalic, head/scalp atraumatic, hearing grossly normal bilaterally, external ears normal, EACs normal, TMs abnormal, nasal mucous membranes abnormal (pale), external nose normal, oral mucous membranes abnormal (dry), oropharynx normal, dentition normal and gingiva normal Eyes: PERRL, EOMs intact bilaterally, conjunctivae normal, no scleral icterus, papilledema noted, normal visual thibodeaux by confrontation, alignment normal, periorbital findings normal and no nystagmus Neck/C-Spine: visual inspection normal, trachea midline, cervical spine nontender, cervical full ROM noted, supple, no meningeal signs and thyroid normal Lymph: no lymphadenopathy noted and no lymphedema noted Chest: inspection of chest normal, palpation of chest normal, inspection of breast(s) abnormal (deferred) and palpation of breast(s) abnormal (deferred) Respiratory: breath sounds equal bilaterally, normal respiratory effort, auscultation abnormal (diminished breath sound), no wheezes, no rales, no retractions and no use of accessory muscles Cardiovascular: heart rate abnormal (tachycardic), regular rhythm noted, no gallop, no rub, no murmur, no JVD, no clicks, peripheral pulses 2+ throughout and no additional abnormal heart sounds Gastrointestinal: abdomen normal to inspection, abdomen soft to palpation, tender to palpation (moderate) and (RLQ), nondistended, normoactive bowel sounds, no hepatosplenomegaly, no masses, no pulsatile mass, no ascites and rectal exam abnormal (deferred) Genitourinary: CVA tenderness noted (left), bladder normal to palpation, external appearance normal, vaginal abnormality noted (deferred) and cervical abnormality noted (deferred) Back/Pelvis: spine normal to inspection, no thoracic spine tenderness, no lumbar spine tenderness, thoracic spine ROM normal, lumbar spine ROM normal and no paraspinal muscle tenderness noted Extremities: normal to inspection, normal to palpation, no tenderness, full ROM, no joint enlargement and no deformity Patient reports pain in her lower extremities 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: 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, no movement abnormality noted, no focal motor deficit noted, sensory deficit noted (bilateral feet numb ), deep tendon reflexes 2+ bilaterally, gait abnormality noted (needs assistance to transfer), speech normal, coordination normal, no pronator drift noted, no fasciculations noted and GCS normal Psychiatry: Mental Status Exam documented within this Exam's Psych section mental status grossly normal, oriented x3, thought process normal, cooperative, affect normal, psychomotor activity normal and memory normal Skin: skin color abnormal Reports (pale), no rash, no lesions, no ecchymosis noted, no wounds, no lacerations, skin turgor normal, no jaundice, no petechiae, no mottling, nails abnormality noted and alopecia noted DS: Data Imaging Chest x-ray: Radiologist's impression: Portable chest Date of Service: 09/03/24 HISTORY: Dyspnea COMPARISON: 03/29/2023 FINDINGS: Heart is mildly enlarged. No definite congestive heart failure is identified. No definite acute alveolar infiltrates, pleural effusions, or pneumothoraces identified. Bony thorax is unremarkable IMPRESSION: Mild cardiomegaly without congestive heart failure No acute infiltrates XR CHEST 2V Date of Service: 09/06/24 HISTORY: couh and hypoxiacouh and hypoxia; cross table lateral is provided with limited range of positioning. COMPARISON STUDY: Chest x-ray 09/03/2024 TECHNIQUE: Two views of the chest frontal and lateral projections FINDINGS: Lungs are expanded. Patchy alveolar infiltrates scattered in both lungs. Mild cardiac silhouette enlargement. Bones appear intact. IMPRESSION: Patchy alveolar infiltrates scattered in both lungs with mild cardiac silhouette enlargement. CT scan - abdomen: Radiologist's impression: CT Abdomen and Pelvis without IV Contrast. Date of Service: 09/03/24 HISTORY: LLQ abd painLLQ abd pain; LLQ abd pain. TECHNIQUE: Axial images were performed through the abdomen and pelvis without the administration of IV contrast with multiplanar reformations . Oral contrast was notadministered . Dose reduction techniques including Automated Exposure Control (AEC) and adjustment of mA and kV were utilized .. COMPARISON: None. TECHNICAL QUALITY: Satisfactory. FINDINGS: Clear lung bases. Mild diffuse hepatic steatosis. Spleen, adrenals, pancreas show no abnormality. 4 mm mid left ureter stone with mild proximal hydroureteronephrosis. Normal biliary tract. No ascites or pneumoperitoneum. Normal aorta. No lymphadenopathy. No bowel obstruction or inflammation. Normal appendix. No pelvic masses or free fluid with unremarkable reproductive organs and urinary bladder. No acute bony abnormality. IMPRESSION: Mid left ureterolithiasis with mild hydroureteronephrosis. Mild diffuse hepatic steatosis. CT ABDOMEN PELVIS WO CON Date of Service: 09/06/24 HISTORY: hydronephrosis, kidney stones, pain; COMPARISON: CT abdomen and pelvis 09/04/2024 TECHNIQUE: Multiple CT axial images of the abdomen and pelvis were obtained without IV contrast. Coronal and sagittal images were reconstructed. Dose reduction techniques included Automated Exposure Control (AEC) and adjustment of mA and kV. FINDINGS: The patient has anasarca with generalized edema. This is manifested as increased density in the subcutaneous fat and the intra-abdominal fat. This is associated with trace left and small right pleural effusions. Heart size is normal. Few linear areas in the lung bases are probably atelectasis. Diffuse decreased density of the liver is compatible with hepatic steatosis. Liver is large measuring about 23 cm. The gallbladder has no edema around it. The spleen is normal in size and shape. The adrenal glands are normal. The pancreas is normal. No abnormal calcifications are present in the kidneys, ureters, or urinary bladder. The kidneys have normal size and shape. There is no hydronephrosis or significant perirenal edema. The urinary bladder is contracted around a Smart balloon catheter. The bowel is not dilated. There is no wall thickening in the bowel or edema around the bowel. The appendix is normal in size with no inflammation around it. No evidence of appendicitis. There is no significant bone abnormality. IMPRESSION: 1. Anasarca with pleural effusions 2. Hepatomegaly with steatosis Discharge Plan Discharge Disposition: [facility] Hospital Condition: Stable Discharge Medications: No Action lisinopril 5 mg tablet 5 mg PO DAILY insulin degludec [Tresiba FlexTouch U-100] 100 unit/mL (3 mL) insulin pen 80 unit subcut DAILY glimepiride 4 mg tablet 4 mg PO BID hydrocodone-acetaminophen 7.5-325 mg tablet 1 tab PO Q8H PRN (Reason: pain) rosuvastatin 20 mg tablet 20 mg PO DAILY furosemide 20 mg tablet 20 mg PO DAILY PRN (Reason: edema) pantoprazole 40 mg tablet,delayed release (DR/EC) 40 mg PO DAILY duloxetine 30 mg capsule,delayed release(DR/EC) 30 mg PO DAILY fluoxetine 10 mg capsule 10 mg PO DAILY Discharge Orders: Discharge Order (Routine); Ordered 09/08/24 Ordered By: Emil Tsang Activity: increase activity as tolerated Diet: diabetic diet Hospital Course: 59-year-old female patient presented to ER with complaint of left lower quadrant abdominal pain and chest pain has been evaluated by physical exam, CBC, CMP, EKG, CT of the abdomen pelvis without contrast, plain film chest x-ray, Troponin, and swabs for influenza with results as noted in charting. Patient's labs reveal patient to be hyperglycemic, hypokalemic, hypoalbuminemic, adjusted sodium is within normal limits, patient is negative for influenza, and CT reveals patient to have a 4 mm nonobstructing renal calculi. Patient reports that she continues to be weak and dizzy and that her abdominal pain continues despite pain medication. Patient's glucose level is responding today; however, it is slow in coming down. Patient's labs also reveal her to be mildly dehydrated which will be replaced with normal saline. Patient will be admitted to observation on the [facility] floor for ongoing evaluation of cardiac enzymes and cardiac rule out, hyperglycemia, dehydration, pain control, and generalized weakness. Day one of hospital stay, patient states she still feels dizzy and weak. 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 Peterson. Blood sugar level was elevated this morning at 430. Provider will increase fluids from 100 to 125/hr and add medication for bowel mo vement. Request for Physical Therapy was put in for evaluation for inner ear. Day two of hospital stay, BP dropped yesterday around 6 pm with the spiking of a fever up to 102.7. Tylenol and Ibuprofen resolved the fever. Fluids and reverse Trendelenburg and adding Levaquin to the antibiotics has resolved the issues with the BP and tachycardia. Patient was able to eat breakfast and urinated finally afterwards. Albumin dropped out with hydration; replaced without incident. Patient troponin, liver, and renal markers continue to climb despite medications and fluids. Day three of hospital stay, patient is pending transfer to a higher level of care facility, waiting for an available bed at this time. Troponin is elevated at 370.20, BNP of 562.0, Hgb of 8.8, Hct of 26.4, and WBC of 11.5. Patient's home meds were restarted; she refused Gabapentin. Patient is continued to be monitored closely pending transfer. Day four of hospital stay, patient is pending transfer to a higher level of care facility, waiting for an available bed at this time. Patient chief complaint of general weakness, dizziness, loss of appetite, and constipation. This morning has felt nauseous but resolved with Zofran. Provider told patient she is to get up and move to recliner for a bit today, with breaks back in bed as needed; this is precautionary to preventing pneumonia. Smart catheter has been removed at this time. Patient states she has a loss of appetite, Ensure dietary supplemental drink will be offered 3X a day and as requested. Physical Therapy is to come in to help patient regain strength and ambulating in a safe manner. Chest physiotherapy will begin today. Day five of hospital stay, patient received an available bed at [facility]. Patient's nurse gave report to accepting facility nurse, Maddi Mane RN. EMS was notified and transfer procedures were initiated. Patient and daughter, at bedside, verbalized understanding and acceptance for continuation of care with [facility]. Patient was alert and oriented, no distress noted at the time EMS left with her on a stretcher at 0044. 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
== END 2024-09-08 | disposition short-term general hospital (02) | DRG 872 ==
LOC: MS 20:40 → ED 20:40 → OBSVTOIN 09-04 01:05 → MS 09-04 02:31
PROVIDERS: ADMIT Nurse Practitioner Family; ATTEND Family Medicine
DX: R31.9 Hematuria, unspecified; E87.6 Hypokalemia; R09.02 Hypoxemia; K59.01 Slow transit constipation; R65.20 Severe sepsis without septic shock; R05.9 Cough, unspecified; A41.51 Sepsis due to Escherichia coli [E. coli]; E11.65 Type 2 diabetes mellitus with hyperglycemia; R06.09 Other forms of dyspnea; R53.1 Weakness; I10 Essential (primary) hypertension; Z79.4 Long term (current) use of insulin; R10.32 Left lower quadrant pain; N17.8 Other acute kidney failure; N20.0 Calculus of kidney; N13.30 Unspecified hydronephrosis; R07.89 Other chest pain; R42 Dizziness and giddiness; E88.09 Other disorders of plasma-protein metabolism, not elsewhere classified; N39.0 Urinary tract infection, site not specified; I95.89 Other hypotension